=== PATIENT | female | born 1985 | race Caucasian/White ===

== ENCOUNTER 2020-08-15 09:48 | Outpatient (REF) | payer OTHER, SELFPAY ==
[2020-08-18 17:07] LABS: HPV mRNA E6/E7 rflx Not Detected (Not Detected)
== END 2020-08-15 09:49 | disposition home or self-care (01) ==
LOC: HO.LAB 09:48
PROVIDERS: PCP Internal Medicine; Visit Provider Obstetrics & Gynecology
DX: Z01.419 Encounter for gynecological examination (general) (routine) without abnormal findings (principal); Z11.51 Encounter for screening for human papillomavirus (HPV)
CPT/HCPCS: 36415; 87624; 88142

== ENCOUNTER 2020-11-23 14:36 | Outpatient (REF) | payer OTHER, SELFPAY ==
[2020-11-23 16:45] LABS: Free T4 (Free Thyroxine) 0.83 ng/dL (0.71-1.85); Thyroid Stimulating Hormone 4.62 uIU/mL (0.32-4.0)
== END 2020-11-23 14:37 | disposition home or self-care (01) ==
LOC: HO.LAB 14:36
PROVIDERS: PCP Internal Medicine; Visit Provider Internal Medicine Endocrinology, Diabetes & Metabolism
DX: E03.8 Other specified hypothyroidism (principal); E06.3 Autoimmune thyroiditis; E04.2 Nontoxic multinodular goiter
CPT/HCPCS: 36415; 84439; 84443; 99212

== ENCOUNTER 2021-01-25 09:53 | Outpatient (REF) | payer OTHER, SELFPAY ==
[2021-01-25 12:24] LABS: Free T4 (Free Thyroxine) 0.82 ng/dL (0.71-1.85); Thyroid Stimulating Hormone 3.29 uIU/mL (0.32-4.0)
== END 2021-01-25 09:54 | disposition home or self-care (01) ==
LOC: HO.LAB 09:53
PROVIDERS: PCP Internal Medicine; Visit Provider Internal Medicine Endocrinology, Diabetes & Metabolism
DX: E03.8 Other specified hypothyroidism (principal); E06.3 Autoimmune thyroiditis; E04.2 Nontoxic multinodular goiter
CPT/HCPCS: 36415; 84439; 84443; 99212

== ENCOUNTER 2021-03-06 14:15 | Outpatient (REF) | payer OTHER, SELFPAY ==
--- NOTE | ~2021-03-06 | US_ITS ---
EXAMINATION: US EXTREMITY NONVASCULAR CLINICAL INFORMATION: Palpable fullness noted by patient several weeks proximal left lower leg. No known trauma. COMPARISON: Standing AP knees 05/06/2017. TECHNIQUE: Ultrasound is targeted to the area of clinical concern anterior medial left lower extremity below the knee. Patient is able to point to area of concern at time of imaging. High frequency linear grayscale imaging and color Doppler are performed. Comparison imaging is performed of the contralateral right side. FINDINGS: Targeted ultrasound demonstrates no focal encapsulated cystic or solid mass. No hyperemia or edema tracking in soft tissue planes. The subcutaneous fat is slightly thicker on the affected side by less than 1 cm. US/US extremity nonvascular mccabe IMPRESSION: No focal cystic or solid mass demonstrated in the area of concern. If clinically indicated, further evaluation of the soft tissues could be performed with MRI without and with gadolinium contrast.
== END 2021-03-06 14:16 | disposition home or self-care (01) ==
LOC: HO.HMGCX 14:15
PROVIDERS: PCP Internal Medicine; Visit Provider Internal Medicine
DX: R22.42 Localized swelling, mass and lump, left lower limb (principal)
CPT/HCPCS: 76882

== ENCOUNTER 2021-05-19 11:59 | Outpatient (REF) | payer OTHER, SELFPAY ==
[2021-05-19 13:15] LABS: Influenza A PCR NEGATIVE (Negative); Influenza B PCR NEGATIVE (Negative); Resp Syncy Virus RNA Qual PCR NEGATIVE (Negative); SARS COV2 PCR INHOUSE NEGATIVE (Negative)
== END 2021-05-19 12:00 | disposition home or self-care (01) ==
LOC: HO.LNP 11:59
PROVIDERS: Visit Provider Internal Medicine
DX: Z20.822 Contact with and (suspected) exposure to COVID-19 (principal); J06.9 Acute upper respiratory infection, unspecified
CPT/HCPCS: 0241U

== ENCOUNTER → 2021-09-22 10:43 | Outpatient (BNVA) | payer OTHER, SELFPAY | PROVIDERS: PCP Internal Medicine; Visit Provider Internal Medicine Endocrinology, Diabetes & Metabolism | DX: E03.8 Other specified hypothyroidism (principal); E06.3 Autoimmune thyroiditis; E04.2 Nontoxic multinodular goiter | CPT/HCPCS: 99212 ==

== ENCOUNTER 2021-09-22 11:34 | Outpatient (REF) | payer OTHER, SELFPAY ==
[2021-09-22 14:24] LABS: Free T4 (Free Thyroxine) 0.85 ng/dL (0.71-1.85); Thyroid Stimulating Hormone 5.41 uIU/mL (0.32-4.0)
== END 2021-09-22 11:35 | disposition home or self-care (01) ==
LOC: HO.10HDL 11:34
PROVIDERS: Visit Provider Internal Medicine Endocrinology, Diabetes & Metabolism
DX: E04.2 Nontoxic multinodular goiter (principal); E03.8 Other specified hypothyroidism; E06.3 Autoimmune thyroiditis
CPT/HCPCS: 36415; 84439; 84443

== ENCOUNTER 2021-11-07 09:43 | Outpatient (REF) | payer OTHER, SELFPAY ==
[2021-11-07 11:25] LABS: Free T4 (Free Thyroxine) 0.87 ng/dL (0.71-1.85); Thyroid Stimulating Hormone 5.38 uIU/mL (0.32-4.0)
== END 2021-11-07 09:44 | disposition home or self-care (01) ==
LOC: HO.LAB 09:43
PROVIDERS: PCP Internal Medicine Endocrinology, Diabetes & Metabolism; Visit Provider Internal Medicine Endocrinology, Diabetes & Metabolism
DX: E03.8 Other specified hypothyroidism (principal); E06.3 Autoimmune thyroiditis
CPT/HCPCS: 36415; 84439; 84443

== ENCOUNTER 2021-11-13 10:43 | Outpatient (REF) | payer OTHER, SELFPAY ==
--- NOTE | ~2021-11-13 | US_ITS ---
EXAMINATION: US THYROID CLINICAL INFORMATION: Nontoxic multinodular goiter. COMPARISON: Ultrasound thyroid soft tissues 11/06/2017 and 05/24/2016. TECHNIQUE: Linear transducer grayscale and color Doppler examination with attention to the region of the thyroid. FINDINGS: SIZE: Measurements of the thyroid lobes and nodules are given in sagittal, anteroposterior and transverse dimensions, respectively. Right Thyroid Lobe: 5.7 x 2.0 x 2.3 cm, volume 13.7 mL. Previously 5.1 x 1.7 x 2.1 cm, volume 9.9 mL. Parenchyma: The gland echotexture is heterogeneous. Thyroid vascularity is normal. Left Thyroid Lobe: 5.7 x 2.4 x 2.4 cm, volume 17.2 mL. Previously 4.8 x 2.0 x 2.1 cm, volume 10.4 mL. Parenchyma: The gland echotexture is heterogeneous. Thyroid vascularity is normal. Isthmus: 0.6 cm in maximum AP dimension. Previously 0.5 cm. Estimated total number of nodules greater than or equal to 1 cm: 3. [employer] nodules are described as follows: 1. Location: Left upper. Size: 1.2 x 1.0 x 1.1 cm, volume 0.69 mL. Previously: Not seen previously. Nodule characteristics: Composition: Solid (2). Echogenicity: Hyperechoic (1). Shape: Not taller than wide (0). Margins: Irregular (2). Echogenic Foci: None (0). ACR TI-RADS total points: 5. ACR TI-RADS category: 4. Significant change in size (>/= 20% in 2 dimensions and minimal increase of 2 mm or 50% or greater increase in volume): Not applicable. Change in features: Not applicable. Change in ACR TI-RADS risk category: Not applicable. 2. Location: Left midpole. Size: 1.5 x 1.0 x 1.4 cm, volume 1.02 mL. Previously: 1.0 x 0.6 x 1.0 cm, volume 0.31 mL. Nodule characteristics: Composition: Mixed cystic and solid (1). Echogenicity: Cannot be determined (1). Shape: Not taller than wide (0). Margins: Smooth (0). Echogenic Foci: None (0 ACR TI-RADS total points: 2. ACR TI-RADS category: 2. Significant change in size (>/= 20% in 2 dimensions and minimal increase of 2 mm or 50% or greater increase in volume): Increased. Change in features: None. Change in ACR TI-RADS risk category: None. 3. Location: Left lower pole. Size: 2.9 x 1.8 x 2.4 cm, volume 6.33 mL. Previously: Not seen previously. Nodule characteristics: Composition: Solid/almost completely solid (2). Echogenicity: Hypoechoic (2). Shape: Not taller than wide (0). Margins: Extrathyroidal extension (3). Echogenic Foci: None (0). ACR TI-RADS total points: 7. ACR TI-RADS category: 5. Significant change in size (>/= 20% in 2 dimensions and minimal increase of 2 mm or 50% or greater increase in volume): Not applicable. Change in features: Not applicable. Change in ACR TI-RADS risk category: Not applicable. NODES: No lymphadenopathy is seen in the tissue surrounding the thyroid gland. US/US thyroid IMPRESSION: Suspicious left lower pole thyroid nodule. The upper pole has solid component. Recommend fine-needle aspiration of both these nodules. ACR TI-RADS RECOMMENDATION REFERENCE: Ultrasound-guided fine-needle aspiration, followup ultrasound, no further follow up. * TR1 (0 point) and TR 2 (2 points): No FNA or follow up * TR3 (3 points): FNA if more than or equal to 2.5 cm in maximum dimension, followup ultrasound in 1, 3 and 5 years if 1.5 to 2.4 cm in maximum dimension. * TR4 (4-6 points): FNA if more than or equal to 1.5 cm in maximum dimension, followup ultrasound in 1, 2, 3 and 5 years if 1 to 1.4 cm in maximum dimension. * TR5 (more than or equal to 7 points): FNA if more than or equal to 1 cm in maximum dimension, followup ultrasound every year for 5 years if 0.5 to 0.9 cm in maximum dimension. * TR3, TR4 or TR5 nodules that are below the size threshold for follow up receive no follow up.
== END 2021-11-13 10:44 | disposition home or self-care (01) ==
LOC: HO.HMGCX 10:43
PROVIDERS: Visit Provider Internal Medicine Endocrinology, Diabetes & Metabolism
DX: E04.2 Nontoxic multinodular goiter (principal)
CPT/HCPCS: 76536

== ENCOUNTER 2021-11-28 10:41 | Outpatient (REF) | payer OTHER, SELFPAY ==
[2021-11-28 12:58] LABS: Free T4 (Free Thyroxine) 0.94 ng/dL (0.71-1.85); Thyroid Stimulating Hormone 2.08 uIU/mL (0.32-4.0)
[2021-11-29 10:49] LABS: CT PCR NOT DETECTED (Not Detect.); NG PCR NOT DETECTED (Not Detect.)
[2021-12-01 13:49] LABS: HPV mRNA E6/E7 rflx Not Detected (Not Detected)
== END 2021-11-28 10:42 | disposition home or self-care (01) ==
LOC: HO.LAB 10:41
PROVIDERS: Internal Medicine Endocrinology, Diabetes & Metabolism; Absent Provider Advanced Practice Midwife; PCP Internal Medicine; Visit Provider Internal Medicine Endocrinology, Diabetes & Metabolism
DX: Z01.419 Encounter for gynecological examination (general) (routine) without abnormal findings (principal); Z11.51 Encounter for screening for human papillomavirus (HPV); E66.01 Morbid (severe) obesity due to excess calories; Z68.44 Body mass index [BMI] 60.0-69.9, adult; E03.8 Other specified hypothyroidism; E04.2 Nontoxic multinodular goiter; E06.3 Autoimmune thyroiditis; Z20.2 Contact with and (suspected) exposure to infections with a predominantly sexual mode of transmission
CPT/HCPCS: 36415; 84439; 84443; 87491; 87591; 87624; 88142

== ENCOUNTER 2021-11-29 09:44 | Outpatient (REF) | payer OTHER, SELFPAY ==
--- NOTE | ~2021-11-29 | US_ITS ---
PROCEDURE: ULTRASOUND-GUIDED FINE-NEEDLE ASPIRATION CLINICAL INFORMATION: Thyroid nodules. COMPARISON: Previous thyroid ultrasound November 2021 and May 2016. TECHNIQUE: Procedure and risks and benefits including bleeding and infection were discussed with the patient and informed consent was obtained. The left neck was prepped and draped in the usual sterile fashion. The skin and soft tissues were anesthetized with 1% lidocaine plain. Using ultrasound guidance and a 25-gauge needle, access to the nodule in the inferior left lobe was obtained. Three 25-gauge FNA specimens were obtained. Subsequently, the more superior left neck was anesthetized with 1% lidocaine plain. Using a 25-gauge needle, access to the hyperechoic nodule in the superior left lobe was obtained. Three 25-gauge FNA specimens were obtained. FINDINGS: There is a 0.7 x 0.7 x 0.9 cm hyperechoic nodule in the superior left lobe that was targeted for fine-needle aspiration. There is a 1.7 x 1.5 x 1.7 cm heterogeneous predominately solid nodule in the inferior left lobe that was targeted for fine-needle aspiration. US/US guided fine needle asp IMPRESSION: Ultrasound-guided left thyroid nodule fine-needle aspirations.
--- NOTE | ~2021-11-29 | US_ITS ---
PROCEDURE: ULTRASOUND-GUIDED FINE-NEEDLE ASPIRATION CLINICAL INFORMATION: Thyroid nodules. COMPARISON: Previous thyroid ultrasound November 2021 and May 2016. TECHNIQUE: Procedure and risks and benefits including bleeding and infection were discussed with the patient and informed consent was obtained. The left neck was prepped and draped in the usual sterile fashion. The skin and soft tissues were anesthetized with 1% lidocaine plain. Using ultrasound guidance and a 25-gauge needle, access to the nodule in the inferior left lobe was obtained. Three 25-gauge FNA specimens were obtained. Subsequently, the more superior left neck was anesthetized with 1% lidocaine plain. Using a 25-gauge needle, access to the hyperechoic nodule in the superior left lobe was obtained. Three 25-gauge FNA specimens were obtained. FINDINGS: There is a 0.7 x 0.7 x 0.9 cm hyperechoic nodule in the superior left lobe that was targeted for fine-needle aspiration. There is a 1.7 x 1.5 x 1.7 cm heterogeneous predominately solid nodule in the inferior left lobe that was targeted for fine-needle aspiration. US/US guided fine needle asp add IMPRESSION: Ultrasound-guided left thyroid nodule fine-needle aspirations.
[2021-11-29] MEDS: Lidocaine HCl 1 % MPF 5 ML VIAL 4 ML SUBCUT (11:34)
== END 2021-11-29 09:45 | disposition home or self-care (01) ==
LOC: HO.US 09:44
PROVIDERS: Visit Provider Internal Medicine Endocrinology, Diabetes & Metabolism
DX: E04.2 Nontoxic multinodular goiter (principal)
CPT/HCPCS: 10005; 10006; 88172; 88173; 88177; 88305

== ENCOUNTER → 2021-12-14 13:19 | Outpatient (BNVA) | payer OTHER, SELFPAY | PROVIDERS: PCP Internal Medicine; Visit Provider Internal Medicine Endocrinology, Diabetes & Metabolism | DX: E03.8 Other specified hypothyroidism (principal); E06.3 Autoimmune thyroiditis; E04.2 Nontoxic multinodular goiter | CPT/HCPCS: 99212 ==

== ENCOUNTER 2021-12-25 09:27 | Outpatient (REF) | payer OTHER, SELFPAY ==
[2021-12-25 11:11] LABS: Free T4 (Free Thyroxine) 1.06 ng/dL (0.71-1.85); Thyroid Stimulating Hormone 1.45 uIU/mL (0.32-4.0)
== END 2021-12-25 09:28 | disposition home or self-care (01) ==
LOC: HO.LAB 09:27
PROVIDERS: PCP Internal Medicine; Visit Provider Internal Medicine Endocrinology, Diabetes & Metabolism
DX: E03.8 Other specified hypothyroidism (principal); E06.3 Autoimmune thyroiditis
CPT/HCPCS: 36415; 84439; 84443

== ENCOUNTER 2022-10-22 13:23 | Outpatient (REF) | payer OTHER, SELFPAY ==
--- NOTE | ~2022-10-22 | MM_ITS ---
EXAMINATION: MM DIAGNOSTIC DIGITAL BREAST TOMOSYNTHESIS, BILATERAL US DIAGNOSTIC ULTRASOUND BREAST, RIGHT CLINICAL INFORMATION: Nontender palpable lump subareolar right breast for approximately 2 weeks. No discharge. No erythema. No prior breast imaging. No known family history breast cancer. The lifetime risk of breast cancer based on the Tyrer-Cuzick Model is 12%. COMPARISON: None (current study represents initial baseline exam). TECHNIQUE: Digital breast tomosynthesis is performed in both the craniocaudal and mediolateral oblique views along with computer-aided detection (CAD). Synthesized 2D images are generated from the tomosynthesis. Additional views are obtained: Right MLO, spot right CC. Ultrasound right breast is targeted to the area of palpable concern retroareolar lower outer breast. Grayscale imaging and color Doppler are performed without and with harmonics. FINDINGS: There are scattered areas of fibroglandular density (ACR BI-RADS breast composition Category b). There is no architectural abnormality or significant mass appreciated. No abnormal calcifications. The axilla are unremarkable. No skin thickening or coarsening of the Brian's ligaments. Ultrasound right breast demonstrates a hypoechoic lesion corresponding to the palpable concern 8:00 retroareolar position with long axis parallel with the skin. Overall dimensions are approximately 1.5 x 0.6 x 1.0 cm. Finding is difficult to separate from the deep dermis and may involve the skin. There is increased vascularity on color Doppler around this area with associated internal color flow is well. Results are discussed with the patient at time of visit. The finding on ultrasound corresponds to the palpable concern. The finding is nonspecific but could represent a benign lesion such as an inflamed sebaceous cyst (which on needle sampling could cause surrounding post sampling inflammation). Patient notes no tenderness at this time. A surgical consult is therefore recommended for further evaluation and to assist with management (follow-up, surgical excision, or ultrasound guided needle sampling). Preliminary results called to medical billing representative for Dr. Grant on 10/22/2022. Results also called to office (HARSH Zacarias) for Dr. Blackwood on 10/22/2022. MM/MM tomosynthesis diagnostic BI IMPRESSION: Right: -Nonspecific subareolar nodule 8:00 right breast with associated color flow. Left: -No mammographic evidence of malignancy. ASSESSMENT: BI-RADS 4: Suspicious (subcategory 4A: Low suspicion for malignancy) RECOMMENDATION: Surgical consult. This patient's information was entered into a reminder system with a target due date for their next mammogram.
== END 2022-10-22 13:24 | disposition home or self-care (01) ==
LOC: HO.MAMMO 13:23
PROVIDERS: Visit Provider Physician Assistant
DX: N63.13 Unspecified lump in the right breast, lower outer quadrant (principal)
CPT/HCPCS: 76642; 77062; 77066

== ENCOUNTER → 2022-11-01 13:59 | Outpatient (BNVA) | payer OTHER, SELFPAY | PROVIDERS: PCP Internal Medicine; Visit Provider Surgery | DX: N63.10 Unspecified lump in the right breast, unspecified quadrant (principal) | CPT/HCPCS: 99202 ==

== ENCOUNTER 2022-11-26 06:07 | Day surgery (SDC) | payer OTHER, SELFPAY ==
[2022-11-22 14:41] VITALS: BMI 60.0
[2022-11-26] VITALS (7 sets, daily range): BP systolic 119–150; BP diastolic 56–86; PULSE 91–116; RESP 20; TEMP 36.2–36.6; O2SAT 97–100
[2022-11-26 06:24] LABS: UPreg QC Valid YES; Urine Pregnancy NEGATIVE (NEGATIVE)
[2022-11-26] MEDS: Lactated Ringers 1,000 ML 100 ML IVCONT (06:45)
--- NOTE | 2022-11-26 07:07 | HO.ANESPROP2 ---
HPI - Anesthesia Eval Consult details Narrative: 37 yo F presenting for right breast mass excision PMFSH Active Problems Active Problems: All Active Problems (Updated 11/22/22 @ 14:44 by Francisca Sanchez RN) Encounter for annual routine gynecological examination (Acute) BMI 60.0-69.9, adult (Acute) Morbid obesity (Acute) Depression (Acute) Localized swelling, mass and lump, left lower limb (Acute) Non-toxic multinodular goiter (Acute) Hypothyroidism (Acute) Past Medical History Medical History Anxiety BMI 60.0-69.9, adult Depression History of abnormal cervical Pap smear Hypothyroidism Localized swelling, mass and lump, left lower limb Morbid obesity Non-toxic multinodular goiter Patient : No Narrative: HCG neg on 11/26/22 Family History Family History Father Stroke Depression Diabetes mellitus Mental health disorder Mother Mental health disorder Maternal Grandmother Unknown family medical history Maternal Grandfather No problems noted. Paternal Grandmother Unknown family medical history Paternal Grandfather Unknown family medical history Brother Mental health disorder Sister No problems noted. Sister No problems noted. Sister No problems noted. Family history of problems with anesthesia: No Surgical History Surgical History No pertinent past surgical history Social History Social History Household Members Other:: sister Housing: House Are you a primary progressive care unit registered nurse to a significant other at home: No Do you presently have visiting nurse or other home services: No Alcohol intake: never Patient Tobacco Use Status: Never used Tobacco e-Cigarette/Vaping Use: Never Used Second Hand Smoke Exposure: No Have you been hit, kicked, punched, or otherwise hurt by someone within the past year? If so, by whom?: No Are you DNR?: No Advance Directives: No Advance Directives Information Provided: Yes Advance Directives on File: No Recently lost weight without trying: No Nutrition Risks: No Nutritional Risk Patient : No FDLMP: 11/22/2022 : No Poor oral hygiene: No service: No Current occupational status: disabled Current occupational exposures/hazards: No Sexual orientation: Straight/Heterosexual Gender identity: Female Meds Allergies Allergy/AdvReac Type Severity Reaction Status Date / Time No Known Allergies Allergy Verified 11/01/22 14:51 [No Known Allergies*] seasonal allergies- pollen Allergy Unknown itchiness Uncoded 11/01/22 14:51 Active Medications: Current Medications Lactated Ringer's (Lr) 1,000 mls @ 100 mls/hr IVCONT .Q10H ALYSE Last Admin: 11/26/22 06:45 Dose: 100 mls/hr Home Medications Medication Instructions Recorded Confirmed Last Taken Type fluoxetine 40 mg capsule 40 mg PO DAILY 01/25/21 11/22/22 11/26/22 History hydroxyzine pamoate 25 mg capsule 25 mg PO TID PRN Anxiety 01/25/21 11/22/22 Unknown History Exam Exam Date and Time: November 26, 2022 0707 Height,Weight and Vital Signs: Height 5 ft 2 in Weight 148.778 kg Last Vital Signs Temp 97.2 F 11/26/22 06:34 Pulse 91 11/26/22 06:34 Resp 20 11/26/22 06:34 BP 150/86 H 11/26/22 06:34 Pulse Ox 100 11/26/22 06:34 O2 Del Method Room Air 11/26/22 06:34 Pertinent Lab Results Pertinent Lab Results: Laboratory Tests 11/26/22 06:13 Urine Test NEGATIVE Airway Mallampati Class: III TM Dist: >3cm Neck ROM: Full Loose/Missing/Broken Teeth: No (Patient denies any loose or chipped teeth) Heart: S1S2 Lungs: CTAB Assessment and Plan Assessment Anesthesia Assessment: Anesthesia Plan Discussed and Chart Reviewed Final Anesthetic Review Family History of Problems with Anesthesia: No NPO: Yes ASA Class: III Final Preanesthetic Review: No Changes in Pt Med Stat, Meds/Allgs Chart Reviewed, Consent Obtained/Reviewed and Anes Risks/Benef Reviewed Patient Risk: Intermediate Procedure Risk: Low Anesthetic Plan Anesthetic Plan: GA and Agree w/ Assess. and Plan Disposition: Standard PACU
--- NOTE | 2022-11-26 07:33 | MHC.SHP ---
Pre-Procedural Eval Section A Date of Service: 11/26/22 The patient is an INPATIENT: No Changes since office visit: Yes Patient answered all questions; No Cold of Flu in the past 2 weeks, No New Medical Problems and No Changes in Medication The History & Physical has been completed within 30 days and I have reviewed it.: Yes Section B Chief Complaint: Unspecified lump in the right breast, unspecified Allergies: Allergies Allergy/AdvReac Type Severity Reaction Status Date / Time No Known Allergies Allergy Verified 11/01/22 14:51 [No Known Allergies*] seasonal allergies- pollen Allergy Unknown itchiness Uncoded 11/01/22 14:51 Plan Diagnosis/Plan: Unchanged I have reviewed the history and physical and performed a pertinent physical examination on my patient. No changes have occurred unless specified. Time Spent With Patient Time: Total time managing care of this patient today ____ minutes.
--- NOTE | 2022-11-26 07:36 | W.PM.OPN ---
Operative Note Operative Note Date of Service: 11/26/22 Narrative: Preoperative diagnosis: Right breast mass Postoperative diagnosis: same Procedure: Right breast lumpectomy Surgeon: Dwayne Grant MD Pushcart Peddler: Shanta Munguia PA-C Anesthesia: General LMA Indications for procedure: 37 year old female presenting with complaints of a palpable mass in the right breast in the 8 o'clock location, below the nipple, confirmed by breast ultrasound. On examination, the lesion is smooth and mobile, located beneath the areola at the 8 o'clock location, mildly tender to palpation. No overlying skin changes are noted. Operative findings: cystic collection with white thick fluid located below the nipple-areolar complex at the 8 o'clock position consistent with a obstructed lactiferous duct. Specimen: right breast mass Estimated blood loss: 2 mL Complications: none Procedure details: patient was brought to the OR placed in a supine position. After administering general anesthesia the patient's right breast was prepped with ChloraPrep and draped in a sterile fashion. A surgical time-out was called and the consent confirmed. Patient received preoperative antibiotics and Venodyne boots were in place. Local anesthesia was infiltrated in a periareolar location along the 8 to 9 o'clock position. Incision was then made with a 15 blade and carried out through subcutaneous tissue. Superior inferior skin flaps were then created. Dissection was continued down beyond the nipple within the subcutaneous tissue. The palpable mass was then grasped with an Allis clamp. This was then incised using electrocautery. A collection of purulent fluid was evacuated during this procedure. The lesion was completely excised and sent to pathology for further examination. Hemostasis assured using free ties of 3-0 Polysorb. Deep breast tissue was then reapproximated using interrupted 3-0 Polysorb sutures. Superficial breast tissue and dermis were reapproximated using interrupted 3-0 Polysorb sutures. Skin was then closed using a running subcuticular 4-0 Polysorb suture. Steri-Strips, 2 x 2 gauze and Tegaderm were then applied. The patient tolerated the procedure well. Sponge, instrument, and needle counts were reported as correct. Patient was transferred to PACU in stable condition.
== END 2022-11-26 10:00 | disposition home or self-care (01) ==
PROVIDERS: Anesthesiology; PCP Internal Medicine; Visit Provider Surgery
PROC: (CPT 19120; principal; 2022-11-26 07:30)
DX: D24.1 Benign neoplasm of right breast (principal); Q85.89 Other phakomatoses, not elsewhere classified; L82.1 Other seborrheic keratosis; J30.2 Other seasonal allergic rhinitis; E03.9 Hypothyroidism, unspecified; E04.2 Nontoxic multinodular goiter; F32.A Depression, unspecified; E66.01 Morbid (severe) obesity due to excess calories; Z68.44 Body mass index [BMI] 60.0-69.9, adult; Z79.51 Long term (current) use of inhaled steroids; Z79.899 Other long term (current) drug therapy
CPT/HCPCS: 19301; 81025; 88305; 88307; J0330; J0690; J1100; J2250; J2370; J2405; J2795; J3010

== ENCOUNTER 2022-12-03 10:55 | Outpatient (REF) | payer OTHER, SELFPAY | END 2022-12-03 10:56 | disposition home or self-care (01) | LOC: HO.LNP 10:55 | PROVIDERS: PCP Internal Medicine; Visit Provider Advanced Practice Midwife | DX: Z13.89 Encounter for screening for other disorder (principal) ==

== ENCOUNTER 2022-12-03 11:43 | Outpatient (REF) | payer OTHER, SELFPAY ==
[2022-12-04 06:34] LABS: CT PCR NOT DETECTED (Not Detect.); NG PCR NOT DETECTED (Not Detect.)
[2022-12-05 04:31] LABS: Syphilis Screen Nonreactive (Nonreactive)
[2022-12-05 07:33] LABS: HBc Num1 0.11 S/CO (0.00-0.79); HIV AB/AG Nonreactive (Nonreactive); HIV Num 1 0.16 S/CO (0.00-0.99); Hepatitis B Core Antibody Nonreactive (Nonreactive); ~HepC Num1 0.13 S/CO (0.00-0.79); ~Hepatitis C Antibody Nonreactive (Nonreactive)
== END 2022-12-03 11:44 | disposition home or self-care (01) ==
LOC: HO.LAB 11:43
PROVIDERS: Visit Provider Advanced Practice Midwife
DX: Z11.4 Encounter for screening for human immunodeficiency virus [HIV] (principal); Z20.2 Contact with and (suspected) exposure to infections with a predominantly sexual mode of transmission
CPT/HCPCS: 0353U; 86704; 86780; 86803; 87389

== ENCOUNTER → 2022-12-05 13:46 | Outpatient (BNVA) | payer OTHER, SELFPAY | PROVIDERS: PCP Internal Medicine; Visit Provider Surgery | DX: N64.89 Other specified disorders of breast (principal); D24.1 Benign neoplasm of right breast | CPT/HCPCS: 99212 ==

== ENCOUNTER 2022-12-12 10:08 | Outpatient (REF) | payer OTHER, SELFPAY ==
[2022-12-12 13:47] LABS: Free T4 (Free Thyroxine) 0.68 ng/dL (0.71-1.85); Thyroid Stimulating Hormone 6.53 uIU/mL (0.32-4.0)
== END 2022-12-12 10:09 | disposition home or self-care (01) ==
LOC: HO.LAB 10:08
PROVIDERS: PCP Internal Medicine; Visit Provider Internal Medicine Endocrinology, Diabetes & Metabolism
DX: E03.8 Other specified hypothyroidism (principal); E04.2 Nontoxic multinodular goiter; E06.3 Autoimmune thyroiditis; Z79.899 Other long term (current) drug therapy
CPT/HCPCS: 36415; 84439; 84443; 99212

== ENCOUNTER 2023-01-02 10:59 | Outpatient (REF) | payer OTHER, SELFPAY ==
--- NOTE | ~2023-01-02 | US_ITS ---
EXAMINATION: US THYROID CLINICAL INFORMATION: Hypothyroidism, unspecified. COMPARISON: Ultrasound thyroid 11/13/2021 and 11/06/2017. US-guided thyroid biopsy 11/29/2021. TECHNIQUE: Linear transducer grayscale and color Doppler examination with attention to the region of the thyroid. Technically limited study secondary to body habitus. FINDINGS: SIZE: Measurements of the thyroid lobes and nodules are given in sagittal, anteroposterior and transverse dimensions respectively. Right Thyroid Lobe: 5.4 x 2.2 x 2.4 cm, volume 14.6 mL. Previously 5.7 x 2.0 x 2.3 cm, volume 13.7 mL. Parenchyma: The gland echotexture is heterogeneous. Thyroid vascularity is normal. Left Thyroid Lobe: 5.3 x 2.4 x 2.0 cm, volume 13.2 mL. Previously 5.7 x 2.4 x 2.4 cm, volume 17.2 mL. Parenchyma: The gland echotexture is heterogeneous. Thyroid vascularity is normal. Isthmus: 0.5 cm in maximum AP dimension. Previously 0.6 cm. Estimated total number of nodules greater than or equal to 1 cm: 3. Director [employer] nodules are described as follows: 1. Location: Left superior. Size: 0.9 x 0.9 x 0.9 cm, volume 0.4 mL. Previously: 1.2 x 1.0 x 1.1 cm, volume 0.69 mL. Nodule characteristics: Composition: Solid (2). Echogenicity: Hyperechoic (1). Shape: Not taller than wide (0). Margins: Smooth (0). Echogenic Foci: None (0). ACR TI-RADS total points: 3 Previous: 5 ACR TI-RADS category: 3 Previous: 4 Significant change in size (>/= 20% in 2 dimensions and minimal increase of 2 mm or 50% or greater increase in volume): No Change in features: No Change in ACR TI-RADS risk category: No 2. Location: Left mid. Size: 1.5 x 0.8 x 1.1 cm, volume 0.7 mL. Previously: 1.5 x 1.0 x 1.4 cm, volume 1.0 mL. Nodule characteristics: Composition: Mixed cystic and solid (1). Echogenicity: Cannot be determined (1). Shape: Not taller than wide (0). Margins: Smooth (0). Echogenic Foci: None (0). ACR TI-RADS total points: 2 Previous: 2 ACR TI-RADS category: 2 Previous: 2 Significant change in size (>/= 20% in 2 dimensions and minimal increase of 2 mm or 50% or greater increase in volume): No Change in features: No Change in ACR TI-RADS risk category: No 3. Location: Left inferior. Size: 1.9 x 1.6 x 2.0 cm, volume 3.1 mL. Previously: 2.9 x 1.8 x 2.4 cm, volume 6.3 mL. Nodule characteristics: Composition: Solid/almost completely solid (2). Echogenicity: Isoechoic (1). Shape: Not taller than wide (0). Margins: Ill-defined (0). Echogenic Foci: None (0). ACR TI-RADS total points: 3 Previous: 7 ACR TI-RADS category: 3 Previous: 5 Significant change in size (>/= 20% in 2 dimensions and minimal increase of 2 mm or 50% or greater increase in volume): No Change in features: Yes, improved Change in ACR TI-RADS risk category: Yes, improved NODES: No lymphadenopathy is seen in the tissue surrounding the thyroid gland. US/US thyroid IMPRESSION: Multinodular goiter. ACR TI-RADS RECOMMENDATION REFERENCE: Ultrasound-guided fine-needle aspiration, followup ultrasound, no further follow up. * TR1 (0 point) and TR2 (2 points): No FNA or follow up. * TR3 (3 points): FNA if more than or equal to 2.5 cm in maximum dimension, followup ultrasound in 1, 3 and 5 years if 1.5 to 2.4 cm in maximum dimension. * TR4 (4-6 points): FNA if more than or equal to 1.5 cm in maximum dimension, followup ultrasound in 1, 2, 3 and 5 years if 1 to 1.4 cm in maximum dimension. * TR5 (more than or equal to 7 points): FNA if more than or equal to 1 cm in maximum dimension, followup ultrasound every year for 5 years if 0.5 to 0.9 cm in maximum dimension. * TR3, TR4 or TR5 nodules that are below the size threshold for followup receive no follow up.
== END 2023-01-02 11:00 | disposition home or self-care (01) ==
LOC: HO.US 10:59
PROVIDERS: PCP Internal Medicine; Visit Provider Internal Medicine Endocrinology, Diabetes & Metabolism
DX: E04.2 Nontoxic multinodular goiter (principal); E03.9 Hypothyroidism, unspecified
CPT/HCPCS: 76536

== ENCOUNTER 2023-02-26 10:04 | Outpatient (AMB) | payer OTHER, SELFPAY ==
--- NOTE | 2023-02-26 10:10 | A.OFFVIS_ITS ---
Intake Vital Signs 02/26/23 10:17 Height 5 ft 2 in Weight 331 lb 2 oz BMI 60.6 BP 146/74 H Blood Pressure Location Lt brachial Position Sitting Pulse 94 Intake Visit Reasons: Lump Rt breast Intake Note: Patient is seen in office for 3 month follow up visit, post right breast lumpectomy.. Patient c/o: feels a lump in the incision therapy site coordinator Required: No Financial Intern: Financial Intern Present Accompanied by: Self / Same As Patient Allergies pollen extracts Allergy (Verified 02/26/23 10:12) Itching Seasonal Allergies Allergy (Verified 02/26/23 10:12) Itching HPI HPI Comments History of Present Illness Details 38-year-old female patient presenting for evaluation of a palpable breast mass located in the nipple-areolar complex noted on self examination. She previously underwent a right breast lumpectomy on 11/26/2022 with an incision located in the periareolar location from 8-9 o'clock position. This revealed a mammary hematoma and small intraductal papilloma, completely excised. She is concerned that a new palpable lump as developed. This was 1st identified approximately 2 weeks ago has not changed significantly since then. [facility] Medical History Anxiety BMI 60.0-69.9, adult Depression History of abnormal cervical Pap smear Hypothyroidism Localized swelling, mass and lump, left lower limb Morbid obesity Non-toxic multinodular goiter Surgical History History of lumpectomy of right breast (11/26/22) Family History Father Stroke Depression Diabetes mellitus Mental health disorder Mother Mental health disorder Maternal Grandmother Unknown family medical history Maternal Grandfather No problems noted. Paternal Grandmother Unknown family medical history Paternal Grandfather Unknown family medical history Brother Mental health disorder Sister No problems noted. Sister No problems noted. Sister No problems noted. Social History Household Members Other:: sister Housing: House Are you a primary residential caregiver to a significant other at home: No Do you presently have visiting nurse or other home services: No Alcohol intake: never Patient Tobacco Use Status: Never used Tobacco e-Cigarette/Vaping Use: Never Used Second Hand Smoke Exposure: No service: No Current occupational status: disabled Current occupational exposures/hazards: No Sexual orientation: Straight/Heterosexual Gender identity: Female Female Reproductive History Menstrual Age of Menarche: 10 Review of Systems Const All systems reviewed & are unremarkable except as noted in HPI and below Denies chills, Denies fever(s), Denies headache(s), Denies poor appetite and Denies weakness ENT Denies headache(s) Card Denies chest pain, Denies irregular heart rhythm, Denies palpitations and Denies dyspnea Resp Denies cough, Denies excessive phlegm production and Denies dyspnea GI Denies abdominal pain, Denies bloating, Denies change in bowel habits, Denies constipation, Denies heartburn, Denies diarrhea, Denies nausea and Denies vomiting Denies urinary frequency and Denies nipple discharge Musc Denies back pain, Denies muscle weakness and Denies numbness Skin/Breast Denies breast swelling, Denies breast skin changes, Reports breast pain, Reports breast mass, Denies changing lesions, Denies nipple discharge and Denies unusual bruising Neuro Denies headache(s), Denies numbness, Denies paresthesias and Denies weakness Psych Denies anxiety and Denies depression Endo Denies palpitations Asaf/Lymph Denies lymphadenopathy Physical Exam Vital Signs: Last Vital Signs Pulse 94 02/26/23 10:17 BP 146/74 H 02/26/23 10:17 BMI result Body Mass Index 60.6 Const General: no acute distress and well developed Nutritional Appearance: well nourished Orientation/consciousness: patient oriented x3 Limitations: no limitations Chest Other: Circumareolar incision in the lower outer quadrant of the right breast is clean, dry, and intact without redness or discharge. The palpable masses located adjacent to this just below the nipple as noted below. This appears to be scar tissue from her previous surgery or a small fluid collection. No new suspicious masses identified. Chest/axillae images: 1. Previous incision 2. Site of palpable lump consistent with scar tissue. Resp Effort & Inspection: normal respiratory effort, no audible wheezes, no cough and no respiratory distress GI Inspection: Yes normal to inspection Skin Other: Warm, dry, no rash Neuro General: patient oriented x3 Extrem Other: No edema Assessment & Plan Assessment & Plan (1) Mass of right breast: Code(s): N63.10 - Unspecified lump in the right breast, unspecified quadrant Plan 38-year-old female patient presenting with a palpable mass in the right breast. On examination this is directly adjacent to the previous surgery and appears to be scar tissue related to this previous procedure in November 2022. I recommended observation with follow-up in approximately 3 months. She is welcome to call sooner for any new concerns. Coding Level of Care Code Est Pt Level 3 (39936) Diagnoses Mass of right breast N63.10
[2023-02-26 10:17] VITALS: BP 146/74; PULSE 94; BMI 60.6
== END 2023-02-26 10:27 | disposition home or self-care (01) ==
PROVIDERS: PCP Internal Medicine; Visit Provider Surgery
DX: N63.15 Unspecified lump in the right breast, overlapping quadrants (principal)
CPT/HCPCS: 99213

== ENCOUNTER → 2023-02-26 10:04 | Outpatient (BNVA) | payer OTHER, SELFPAY | PROVIDERS: PCP Internal Medicine; Visit Provider Surgery | DX: N63.10 Unspecified lump in the right breast, unspecified quadrant (principal) | CPT/HCPCS: 99212 ==

== ENCOUNTER 2023-04-24 09:21 | Outpatient (AMB) | payer OTHER, SELFPAY ==
[2023-04-24 09:30] VITALS: BP 130/78; PULSE 84; O2SAT 98; BMI 60.0
--- NOTE | 2023-04-24 09:30 | A.OFFPC_ITS ---
<Statement entered by Angella Blackwood MD - 08/15/25 23:54> This note has been administratively?closed. Vital Signs 04/24/23 09:30 Height 5 ft 2 in Weight 328 lb BMI 60.0 BP 130/78 Blood Pressure Location Rt brachial Position Sitting Pulse 84 Pulse Source Pulse Oximeter Pulse Oximetry (%) 98 Oxygen Delivery Method Room Air Intake Visit Reasons: Right knee pain Intake Note: patient is here today for right knee pain Allergies pollen extracts Allergy (Verified 07/14/25 10:53) Itching Seasonal Allergies Allergy (Verified 07/14/25 10:53) Itching Tobacco use date assessed: 04/24/23 Dental Screening Dental Screen Date: 04/24/23 Did you have a dental visit in the last 12 months?: No Did you have a dental problem in the last 6 months where you did not have access to dental care?: Yes Was dental information given to patient?: Patient has dentist [facility] Medical History (Updated 07/01/25 @ 13:53 by Joselyn Stewart CNM) Anxiety BMI 60.0-69.9, adult Morbid obesity History of abnormal cervical Pap smear Depression Localized swelling, mass and lump, left lower limb Non-toxic multinodular goiter Hypothyroidism Surgical History History of lumpectomy of right breast (11/26/22) Family History Father Stroke Depression Diabetes mellitus Mental health disorder Mother Mental health disorder Maternal Grandmother Unknown family medical history Maternal Grandfather No problems noted. Paternal Grandmother Unknown family medical history Paternal Grandfather Unknown family medical history Brother Mental health disorder Sister No problems noted. Sister No problems noted. Sister No problems noted. Social History Household Members Other:: sister Housing: House Are you a primary career placement specialist to a significant other at home: No Do you presently have visiting nurse or other home services: No Alcohol intake: never Patient Tobacco Use Status: Never used Tobacco e-Cigarette/Vaping Use: Never Used Second Hand Smoke Exposure: No service: No Current occupational status: disabled Current occupational exposures/hazards: No Sexual orientation: Straight/Heterosexual Gender identity: Female Female Reproductive History Menstrual Age of Menarche: 10 Questionnaire PHQ-9 Over the last 2 weeks, how often have you been bothered by any of the following problems? 1. Little interest or pleasure in doing things: more than half the days 2. Feeling down, depressed, or hopeless: several days 3. Trouble falling or staying asleep, or sleeping too much: several days 4. Feeling tired or having little energy: more than half the days 5. Poor appetite or overeating: nearly every day 6. Feeling bad about yourself - or that you are a failure or have let yourself or your family down: more than half the days 7. Trouble concentrating on things, such as reading the newspaper or watching television: more than half the days 8. Moving or speaking so slowly that other people could have noticed. Or the opposite - being so fidgety or restless that you have been moving around a lot more than usual: more than half the days 9. Thoughts that you would be better off or of hurting yourself in some way: not at all Total score: 15 Source: Developed by Drs. Renny Hutchinson, Kelsey Wgigins, Piotr Byers and colleagues, with an educational melissa from [employer]. Thrive Questionnaire Date Thrive assessed: 04/24/23 I am a: Patient What is your living situation today?: I have a steady place to live Within the past 12 months, did the food you bought not last and you didn't have the money to get more?: Never true Within the past 12 months, did you worry whether your food would run out before you got money to buy more?: Never true Do you have trouble paying for medicines?: No Do you have trouble getting transportation to medical appointments?: Yes Do you have trouble paying your heating and electricity bill?: No Do you have trouble taking care of your child, family member or friend?: No Do you have trouble with day-to-day activities such as bathing, preparing meals, shopping, managing finances, etc.?: Yes Are you currently unemployed and looking for a job?: No Are you interested in more education?: Yes AUDIT C Alcohol Use Questionnaire (AUDIT-C) 1. How often do you have a drink containing alcohol?: Never Total Score: 0 PARUL-7 AMB Questionnaire PARUL-7 Date PARUL - 7 assessed: 04/24/23 Feeling nervous, anxious, or on edge: 3 = Nearly every day Not being able to stop or control worryin = More than half the days Worrying too much about different things: 3 = Nearly every day Trouble relaxin = More than half the days Being so restless that it is hard to sit still: 2 = More than half the days Becoming easily annoyed or irritable: 2 = More than half the days Feeling afraid as if something awful might happen: 3 = Nearly every day Total PARUL-7 score (0-4 normal; 5-9 mild; 10-14 moderate; 15-21 severe): 17 Source: Developed by Drs. Renny Hutchinson, Kelsey Wiggins, Piotr Byers and colleagues, with an educational melissa from [employer]. Physical exam (Primary Care) Vital Signs: Last Vital Signs Pulse 84 04/24/23 09:30 BP 130/78 04/24/23 09:30 Pulse Ox 98 04/24/23 09:30 Oxygen Delivery Method Room Air 04/24/23 09:30 BMI result Body Mass Index 60.0 Tobacco/Smoking Status: Tobacco use Status Tobacco use date assessed 04/24/23 04/24/23 09:32 Patient Tobacco Use Status Never used Tobacco 04/24/23 09:32 e-Cigarette/Vaping Use Never Used 04/24/23 09:32 PHQ-9: PHQ-9 Score PHQ-9: Total score 15 04/24/23 11:15 Thrive Assessment: Date of Thrive Assessment Date Thrive assessed 04/24/23 04/24/23 10:42 Coding Level of Care Code Admin Sign Off/No Billing Diagnoses Right anterior knee pain M25.561
== END 2023-04-24 12:28 | disposition home or self-care (01) ==
PROVIDERS: PCP Internal Medicine; Visit Provider Internal Medicine
DX: M25.561 Pain in right knee (principal)
CPT/HCPCS: 99499

== ENCOUNTER 2023-04-24 11:19 | Outpatient (REF) | payer OTHER, SELFPAY | END 2023-04-24 11:20 | disposition home or self-care (01) | LOC: HO.HMGCX 11:19 | PROVIDERS: PCP Internal Medicine; Visit Provider Internal Medicine | DX: M25.561 Pain in right knee (principal) | CPT/HCPCS: 73564 ==

== ENCOUNTER 2023-05-22 09:18 | Outpatient (REF) | payer OTHER, SELFPAY ==
[2023-05-22 11:08] LABS: Free T4 (Free Thyroxine) 0.87 ng/dL (0.71-1.85); Thyroid Stimulating Hormone 3.97 uIU/mL (0.32-4.0)
== END 2023-05-22 09:19 | disposition home or self-care (01) ==
LOC: HO.LAB 09:18
PROVIDERS: PCP Internal Medicine; Visit Provider Internal Medicine Endocrinology, Diabetes & Metabolism
DX: E03.8 Other specified hypothyroidism (principal); E06.3 Autoimmune thyroiditis
CPT/HCPCS: 36415; 84439; 84443

== ENCOUNTER 2023-05-28 09:28 | Outpatient (AMB) | payer OTHER, SELFPAY ==
--- NOTE | 2023-05-28 09:31 | MHC.OFFVIS ---
Intake Vital Signs 05/28/23 09:32 Height 5 ft 2 in Weight 319 lb 10.724 oz BMI 58.5 BP 132/84 Blood Pressure Location Lt brachial Position Sitting Pulse 75 Pulse Source Pulse Oximeter Intake Visit Reasons: f/u hypothyroidism,MNG-LVM Intake Note: Patient present for Hypothyroidism and MNG. Program Management Analyst Required: No Accompanied by: Self / Same As Patient Allergies pollen extracts Allergy (Verified 05/28/23 09:39) Itching Seasonal Allergies Allergy (Verified 05/28/23 09:39) Itching Medication List - Last Reconciled 05/28/23 by Renny Torres MD diclofenac sodium 1% 4 grams topical QID PRN fluoxetine 40 mg PO DAILY fluticasone propionate 50 mcg/actuation (Allergy Relief (fluticasone)) 1 spray intranasal DAILY hydroxyzine pamoate 25 mg PO TID PRN levothyroxine 137 mcg PO DAILY oxycodone 5 mg PO Q6H PRN HPI HPI Comments History of Present Illness Details 38 yo female today for fup visit,1 for hypothyroidism She is feeling well. Her weight is stable. She has Autoimmune thyroid disease she has all antibodies positive and a NTMNG. She has depression, morbid obesity. She is currently on levothyroxine 137 mcg daily. Denies cold or heat intolerance, regular periods, denies diarrhea, constipation, insomnia, fatigue, dry skin, dysphagia, dyspnea, dysphonia, tremors, palpitations, irritability, anxiety. TSH 6.80 MIU/ML 01/12/16 TSH 6.97 MIU/ML 09/19/15 TSH 4.51 MIU/ML 07/06/15 US thyroid 11/06/17 Right thyroid lobe: 5.1 x 1.7 x 2.1 cm, volume 9.9 mL. Left thyroid lobe: 4.8 x 2.0 x 2.1 cm, volume 10.4 mL. Isthmus: 0.5 cm in maximum AP dimension. PARENCHYMA: The gland echotexture is heterogeneous. Thyroid vascularity is normal. RIGHT THYROID LOBE: No nodules. ISTHMUS: No nodules. LEFT THYROID LOBE: There is 1 nodule seen. 1. Location: Interpolar region, anteriorly. Size: 1.0 x 0.6 x 1.0 cm. Previous: 1.3 x 0.5 x 0.8 cm. Nodule characteristics: Well-circumscribed, mixed cystic-solid, with Doppler flow in the solid component. No microcalcifications. NODES: The lymph nodes observed inferior to the left thyroid lobe are not detected on today's exam. No lymphadenopathy within the examined lower neck. She is status post FNA with results as follows: Left lower pole FNA was benign and left upper pole showed FLUS but affirma was negative Laboratory Tests 10/21/18 11/23/20 11:35 15:18 TSH 4.62 H Free T4 0.83 TSH 3rd Generation 2.57 Laboratory Tests 05/29/18 10/21/18 11:15 11:35 25-OH Vitamin D To linda 19.8 Free T4 0.99 0.92 TSH 3rd Generation 4.21 H 2.57 PFSH Medical History Anxiety BMI 60.0-69.9, adult Depression History of abnormal cervical Pap smear Hypothyroidism Localized swelling, mass and lump, left lower limb Morbid obesity Non-toxic multinodular goiter Surgical History History of lumpectomy of right breast (11/26/22) Family History Father Stroke Depression Diabetes mellitus Mental health disorder Mother Mental health disorder Maternal Grandmother Unknown family medical history Maternal Grandfather No problems noted. Paternal Grandmother Unknown family medical history Paternal Grandfather Unknown family medical history Brother Mental health disorder Sister No problems noted. Sister No problems noted. Sister No problems noted. Social History Household Members Other:: sister Housing: House Are you a primary care administrative tech to a significant other at home: No Do you presently have visiting nurse or other home services: No Alcohol intake: never Patient Tobacco Use Status: Never used Tobacco e-Cigarette/Vaping Use: Never Used Second Hand Smoke Exposure: No service: No Current occupational status: disabled Current occupational exposures/hazards: No Sexual orientation: Straight/Heterosexual Gender identity: Female Female Reproductive History Menstrual Age of Menarche: 10 Physical Exam Vital Signs: Last Vital Signs Pulse 75 05/28/23 09:32 BP 132/84 05/28/23 09:32 BMI result Body Mass Index 58.5 Const Other: Thyroid gland is of normal size weighs about 15 g. There are no thyroid nodules palpated. 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 She appears to be clinically and biochemically euthyroid. At this point, patient returned to the care of her primary care provider and return back to endocrinology as needed (2) Non-toxic multinodular goiter: Code(s): E04.2 - Nontoxic multinodular goiter Plan: Status post FNA of left lower pole nodule with benign cytology a left upper pole nodule with FL US and benign Afirma Plan is to follow with serial thyroid ultrasound. Patient returned to the care of her primary care provider who could order ultrasound about 2 years time. 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
[2023-05-28 09:32] VITALS: BP 132/84; PULSE 75; BMI 58.5
== END 2023-05-28 09:52 | disposition home or self-care (01) ==
PROVIDERS: PCP Internal Medicine; Visit Provider Internal Medicine Endocrinology, Diabetes & Metabolism
DX: E03.8 Other specified hypothyroidism (principal); E06.3 Autoimmune thyroiditis; E04.2 Nontoxic multinodular goiter
CPT/HCPCS: 99213

== ENCOUNTER → 2023-05-28 09:28 | Outpatient (BNVA) | payer OTHER, SELFPAY | PROVIDERS: Visit Provider Internal Medicine Endocrinology, Diabetes & Metabolism | DX: N63.41 Unspecified lump in right breast, subareolar (principal); E03.8 Other specified hypothyroidism; E06.3 Autoimmune thyroiditis; E04.2 Nontoxic multinodular goiter | CPT/HCPCS: 99212 ==

== ENCOUNTER 2023-05-28 09:56 | Outpatient (AMB) | payer OTHER, SELFPAY ==
--- NOTE | 2023-05-28 10:04 | MHC.OFFVIS ---
Intake Vital Signs 05/28/23 10:19 Height 5 ft 2 in Weight 317 lb 7.45 oz BMI 58.1 BP 130/78 Blood Pressure Location Lt brachial Position Sitting Intake Visit Reasons: Rt breast mass, 3 month follow up Intake Note: Patient is seen in office for 3 month follow up visit, breast exam. Patient c/o: admits to burning pain in the right breast on and off, had felt a lump on the right breast but it then disappeared mm:10/22/22 Brand Advocate Required: No Ip/Mosaic Technician: Ip/Mosaic Technician Present Accompanied by: Self / Same As Patient Allergies pollen extracts Allergy (Verified 05/28/23 10:19) Itching Seasonal Allergies Allergy (Verified 05/28/23 10:19) Itching Medication List - Last Reconciled 05/28/23 by Dwayne Grant MD diclofenac sodium 1% 4 grams topical QID PRN fluoxetine 20 mg PO DAILY fluticasone propionate 50 mcg/actuation (Allergy Relief (fluticasone)) 1 spray intranasal DAILY hydroxyzine pamoate 25 mg PO TID PRN levothyroxine 137 mcg PO DAILY HPI HPI Comments History of Present Illness Details 38-year-old female patient presenting for evaluation of a palpable breast mass located in the nipple-areolar complex noted on self examination. She previously underwent a right breast lumpectomy on 11/26/2022 with an incision located in the periareolar location from 8-9 o'clock position. This revealed a mammary hematoma and small intraductal papilloma, completely excised. She was concerned that a new palpable lump as developed. She was examined approximately 3 months ago and a small lump noted in the right nipple region scar tissue from the previous surgery. Observation was recommended and she returns today for follow-up examination. Since her last visit she reports some burning near the incision and around the nipple but feels the lump has gone away. She denies any new breast symptoms. [facility] Medical History Anxiety BMI 60.0-69.9, adult Morbid obesity History of abnormal cervical Pap smear Depression Localized swelling, mass and lump, left lower limb Non-toxic multinodular goiter Hypothyroidism Surgical History History of lumpectomy of right breast (11/26/22) Family History Father Stroke Depression Diabetes mellitus Mental health disorder Mother Mental health disorder Maternal Grandmother Unknown family medical history Maternal Grandfather No problems noted. Paternal Grandmother Unknown family medical history Paternal Grandfather Unknown family medical history Brother Mental health disorder Sister No problems noted. Sister No problems noted. Sister No problems noted. Social History Household Members Other:: sister Housing: House Are you a primary career technical counselor to a significant other at home: No Do you presently have visiting nurse or other home services: No Alcohol intake: never Patient Tobacco Use Status: Never used Tobacco e-Cigarette/Vaping Use: Never Used Second Hand Smoke Exposure: No service: No Current occupational status: disabled Current occupational exposures/hazards: No Sexual orientation: Straight/Heterosexual Gender identity: Female Female Reproductive History Menstrual Age of Menarche: 10 Date of Mammogram: 10/22/22 Review of Systems Const All systems reviewed & are unremarkable except as noted in HPI and below Denies chills, Denies fever(s), Denies headache(s), Denies poor appetite and Denies weakness ENT Denies headache(s) Card Denies chest pain, Denies irregular heart rhythm, Denies palpitations and Denies dyspnea Resp Denies cough, Denies excessive phlegm production and Denies dyspnea GI Denies abdominal pain, Denies bloating, Denies change in bowel habits, Denies constipation, Denies heartburn, Denies diarrhea, Denies nausea and Denies vomiting Denies urinary frequency and Denies nipple discharge Musc Denies back pain, Denies muscle weakness and Denies numbness Skin/Breast Denies breast swelling, Denies breast skin changes, Reports breast pain, Reports breast mass, Denies changing lesions, Denies nipple discharge and Denies unusual bruising Neuro Denies headache(s), Denies numbness, Denies paresthesias and Denies weakness Psych Denies anxiety and Denies depression Endo Denies palpitations Asaf/Lymph Denies lymphadenopathy Physical Exam Vital Signs: Last Vital Signs BP 130/78 05/28/23 10:19 BMI result Body Mass Index 58.1 Const General: no acute distress and well developed Nutritional Appearance: well nourished Orientation/consciousness: patient oriented x3 Limitations: no limitations Chest Other: Circumareolar incision in the lower outer quadrant of the right breast is clean, dry, and intact without redness or discharge. Examination of the nipple-areolar complex reveals no further palpable mass and no other new skin changes or palpable mass. The remaining breast exam is normal. Resp Effort & Inspection: normal respiratory effort, no audible wheezes, no cough and no respiratory distress GI Inspection: Yes normal to inspection Skin Other: Warm, dry, no rash Neuro General: patient oriented x3 Extrem Other: No edema Assessment & Plan Assessment & Plan (1) Mass of right breast: Code(s): N63.10 - Unspecified lump in the right breast, unspecified quadrant Qualifiers: Breast mass location: subareolar Qualified Code(s): N63.41 - Unspecified lump in right breast, subareolar Plan 38-year-old female patient status post lumpectomy for a intraductal papilloma on 11/26/2022 returning today for follow-up examination. Examination today reveals no new palpable mass. The previously palpable scar tissue below the nipple-areolar complex has resolved. Routine follow-up is recommended. She should follow up as needed. Coding Level of Care Code Est Pt Level 3 (62748) Diagnoses Subareolar mass of right breast N63.41 Breast mass location: subareolar
[2023-05-28 10:19] VITALS: BP 130/78; BMI 58.1
== END 2023-05-28 10:22 | disposition home or self-care (01) ==
PROVIDERS: PCP Internal Medicine; Visit Provider Surgery
DX: N63.41 Unspecified lump in right breast, subareolar (principal)
CPT/HCPCS: 99213

== ENCOUNTER 2024-04-10 10:44 | Outpatient (AMB) | payer OTHER, SELFPAY ==
[2024-04-10 10:51] VITALS: BP 136/90; PULSE 72; BMI 55.0
--- NOTE | 2024-04-10 10:51 | MHC.OFFVIS ---
Vital Signs 04/10/24 10:51 Height 5 ft 2 in Weight 300 lb 14.896 oz BMI 55.0 BP 136/90 H Blood Pressure Location Lt brachial Position Sitting Pulse 72 Pulse Source Pulse Oximeter Intake Visit Reasons: hypothyroidism,MNG Intake Note: Patient present today for hypothyroidism and MNG office visit. 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 Also seen today for obesity. Was previously seeing Dr. Torres last visit May 2023 She has depression, morbid obesity. Hypothyroidism Nontoxic multinodular goiter for hypothyroidism , She is currently on levothyroxine 137 mcg daily. Taking it appropriately, adherent. She does take it with her anti depressants. Lost 15 lbs over the past year. With lifestyle modification. Denies cold or heat intolerance, regular periods, denies diarrhea, constipation, insomnia, fatigue, dry skin, dysphagia, dyspnea, dysphonia, palpitations, irritability, anxiety. Sometimes like once in a few months will have intermittent tremors. Not on biotin. No family history of thyroid disease or thyroid cancer. Has diagnosis of nontoxic multinodular goiter since at least 2015. Left lower pole FNA 12/03 was benign and left upper pole showed FLUS but affirma was negative No compressive symptoms. Obesity BMI 55.0 kg/m2 Not interested in bariatric surgery No DM and HTN Highest weight 336 lbs Currently 321 lbs Lost 15 lbs over the past year. With lifestyle modification. Exercise: walking twice a week , 20 mins Diet : 2 meals a day Breakfast protein , carb Dinner protein plus carb Snacks on yogurt , bananas Also does have chips and cookies sometimes but not often No soda Does have juice sometimes Interested in seeing a radiologist chief of breast imaging No history of pancreatitis No history of gall stones No alcohol use Never smoker No drug use Denies easy bruising, proximal muscle weakness. Family history of DM in father and paternal aunt Father : Stroke and CAD Denies any family history of thyroid cancer. . Review of systems Constitutional: no fevers, chills or weight loss HEENT: no changes in vision Cardiac: No chest pain, discomfort or palpitations. Pulmonary: No SOB GI:No abdominal pain, no nausea or vomiting, no anorexia, no blood in stool : no burning micturition, dysuria or increase in urinary frequency Physical exam General: sitting comfortably in no acute distress HEENT: normocephalic/atraumatic, hair on chin noted Neck: supple, symmetrical, no thyromegaly , does have dorsocervical and supraclavicular fat pads Cardiac: normal heart sounds Pulm: normal breath sounds B/L, no added breath sounds Abd: not distended, no tenderness, no cushingoid striae Extremities: no edema, no signs of myxedema Neuro: AAO x3, Speech: normal, no facial droop, moving all 4 extremities [facility] Medical History Anxiety BMI 60.0-69.9, adult Morbid obesity History of abnormal cervical Pap smear Depression Localized swelling, mass and lump, left lower limb Non-toxic multinodular goiter Hypothyroidism Surgical History History of lumpectomy of right breast (11/26/22) Family History Father Stroke Depression Diabetes mellitus Mental health disorder Mother Mental health disorder Maternal Grandmother Unknown family medical history Maternal Grandfather No problems noted. Paternal Grandmother Unknown family medical history Paternal Grandfather Unknown family medical history Brother Mental health disorder Sister No problems noted. Sister No problems noted. Sister No problems noted. Social History Household Members Other:: sister Housing: House Are you a primary career technical supervisor to a significant other at home: No Do you presently have visiting nurse or other home services: No Alcohol intake: never Patient Tobacco Use Status: Never used Tobacco e-Cigarette/Vaping Use: Never Used Second Hand Smoke Exposure: No service: No Current occupational status: disabled Current occupational exposures/hazards: No Sexual orientation: Straight/Heterosexual Gender identity: Female Female Reproductive History Menstrual Age of Menarche: 10 Physical Exam Vital Signs: Last Vital Signs Pulse 72 04/10/24 10:51 BP 136/90 H 04/10/24 10:51 BMI result Body Mass Index 55.0 Results Reviewed Results Reviewed: Laboratory Tests 05/22/23 09:44 TSH 3.97 Free T4 0.87 US THYROID 01/04 I reviewed the images myself which showed the left-sided nodules with the largest left dominant inferior 2 cm nodule. All nodules remain stable in size/have slightly decreased. CLINICAL INFORMATION: Hypothyroidism, unspecified. COMPARISON: Ultrasound thyroid 11/13/2021 and 11/06/2017. US-guided thyroid biopsy 11/29/2021. TECHNIQUE: Linear transducer grayscale and color Doppler examination with attention to the region of the thyroid. Technically limited study secondary to body habitus. FINDINGS: SIZE: Measurements of the thyroid lobes and nodules are given in sagittal, anteroposterior and transverse dimensions respectively. Right Thyroid Lobe: 5.4 x 2.2 x 2.4 cm, volume 14.6 mL. Previously 5.7 x 2.0 x 2.3 cm, volume 13.7 mL. Parenchyma: The gland echotexture is heterogeneous. Thyroid vascularity is normal. Left Thyroid Lobe: 5.3 x 2.4 x 2.0 cm, volume 13.2 mL. Previously 5.7 x 2.4 x 2.4 cm, volume 17.2 mL. Parenchyma: The gland echotexture is heterogeneous. Thyroid vascularity is normal. Isthmus: 0.5 cm in maximum AP dimension. Previously 0.6 cm. Estimated total number of nodules greater than or equal to 1 cm: 3. Chemical Sales Representative nodules are described as follows: 1. Location: Left superior. Size: 0.9 x 0.9 x 0.9 cm, volume 0.4 mL. Previously: 1.2 x 1.0 x 1.1 cm, volume 0.69 mL. Nodule characteristics: Composition: Solid (2). Echogenicity: Hyperechoic (1). Shape: Not taller than wide (0). Margins: Smooth (0). Echogenic Foci: None (0). ACR TI-RADS total points: 3 Previous: 5 ACR TI-RADS category: 3 Previous: 4 Significant change in size (>/= 20% in 2 dimensions and minimal increase of 2 mm or 50% or greater increase in volume): No Change in features: No Change in ACR TI-RADS risk category: No 2. Location: Left mid. Size: 1.5 x 0.8 x 1.1 cm, volume 0.7 mL. Previously: 1.5 x 1.0 x 1.4 cm, volume 1.0 mL. Nodule characteristics: Composition: Mixed cystic and solid (1). Echogenicity: Cannot be determined (1). Shape: Not taller than wide (0). Margins: Smooth (0). Echogenic Foci: None (0). ACR TI-RADS total points: 2 Previous: 2 ACR TI-RADS category: 2 Previous: 2 Significant change in size (>/= 20% in 2 dimensions and minimal increase of 2 mm or 50% or greater increase in volume): No Change in features: No Change in ACR TI-RADS risk category: No 3. Location: Left inferior. Size: 1.9 x 1.6 x 2.0 cm, volume 3.1 mL. Previously: 2.9 x 1.8 x 2.4 cm, volume 6.3 mL. Nodule characteristics: Composition: Solid/almost completely solid (2). Echogenicity: Isoechoic (1). Shape: Not taller than wide (0). Margins: Ill-defined (0). Echogenic Foci: None (0). ACR TI-RADS total points: 3 Previous: 7 ACR TI-RADS category: 3 Previous: 5 Significant change in size (>/= 20% in 2 dimensions and minimal increase of 2 mm or 50% or greater increase in volume): No Change in features: Yes, improved Change in ACR TI-RADS risk category: Yes, improved NODES: No lymphadenopathy is seen in the tissue surrounding the thyroid gland. US/US thyroid IMPRESSION: Multinodular goiter. 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 Last set labs was show 2022, she does not have any symptoms of hypo or hyperthyroidism. Plan: -ordered TSH, free T4 -continue levothyroxine 137 mcg daily (2) Non-toxic multinodular goiter: Code(s): E04.2 - Nontoxic multinodular goiter Category: Medical Plan: Patient with no family history of thyroid cancer, with no personal history of head or neck radiation, has history of nontoxic multinodular goiter at least since 2016. FNA in November 2021 of the left lower pole FNA 12/03 was benign and left upper pole showed FLUS but affirma was negative No compressive symptoms. Most recent thyroid ultrasound December 2022 showed 3 nodules in the left lobe, superior subcentimeter nodule, a mid 1.5 cm cystic nodule and a left lower dominant 2 cm nodule. All of these nodules have actually decreased in size. The left lower lobe nodule which was previously a high suspicion nodule, now shows no calcifications, is well-defined and is actually a low suspicion nodule with a 5-10% chance of malignancy. This has been biopsied before and was benign. At this time given stability of the nodules, would recommend repeat ultrasound in 2 years from the last 1 which would be in December 2024. Since the left lower dominant nodule was new in appearance on ultrasound in 2021, this needs to be monitored for at least 5 years., Plan: -repeat thyroid ultrasound December 2024 ordered (3) Morbid obesity: Code(s): E66.01 - Morbid (severe) obesity due to excess calories Category: Medical Plan: Patient with morbid obesity BMI of 55.0 kg per m2. She has lost 15 lb in the last year with moderate exercise and decreasing her calories. I reviewed with patient the importance of weight loss as it relates to decreasing the risk of diabetes, cardiovascular disease, obstructive sleep apnea,PCOS, arthritis. We reviewed the importance of decreasing total calorie consumption, minimizing fats and carbohydrates. Discussed 500 calorie daily deficit plan with phone apps We reviewed the plate method. I recommended avoiding eating after 7 PM at night. She was advised to start exercising 30-45 mins a day plus 2 days of strength training. walking at least 10,000 steps a day. She would also be a good candidate for GLP 1 agonist such as we go we are is a bound for weight loss. She does not have any history of pancreatitis, does not use alcohol. No family history of medullary thyroid cancer. I discussed these with her briefly today, and we will have her follow up with me in 3 months after the intensive lifestyle modification plan we discussed to see if we can start her on 1 of those. Would also check A1c. She was referred to radiologist chief of breast imaging. Plan I spent 30 minutes in reviewing the record, seeing the patient and documenting in the medical record. Orders: Orders Hemoglobin A1c Today E03.8 - Other specified hypothyroidism, E04.2 - Nontoxic multinodular goiter, E06.3 - Autoimmune thyroiditis, E66.01 - Morbid (severe) obesity due to excess calories Thyroid Stimulating Hormone Today E03.8 - Other specified hypothyroidism, E04.2 - Nontoxic multinodular goiter, E06.3 - Autoimmune thyroiditis, E66.01 - Morbid (severe) obesity due to excess calories Free T4 (Free Thyroxine) Today E03.8 - Other specified hypothyroidism, E04.2 - Nontoxic multinodular goiter, E06.3 - Autoimmune thyroiditis, E66.01 - Morbid (severe) obesity due to excess calories thyroid 12/21/24 E04.2 - Nontoxic multinodular goiter Referrals [facility] Referral E66.01 - Morbid (severe) obesity due to excess calories Patient Instructions: Do blood work today Next thyroid ultrasound December 2024 See radiologist chief of breast imaging Exercise: 30 mins 5 days of aerobic exercise which is brisk walking, cycling or running/jogging Plus 2 days a week for strenght training / weight lifting When you park, park far away so you always get some steps in Monitor your steps on your phone : at least [phone] to [phone] a day, start small but go big and build up with time Use apps on phone such as Weiju or lose it , these are free and use them to maintain a 500 calorie deficit daily to lose 1 lb per week Weight loss counselling ? Limit added sugars to less than 25 grams daily. There are 4.2 grams of sugar per teaspoon of sugar. A teaspoon of honey has 6 grams of sugar! Bread also can have more sugar than you think-check labels ? No soda or juices. Drink water, unsweetened iced tea or seltzer ? Limit eating out/take out or prepared meals to twice weekly at most ? Avoid red meat, hot dogs, castellano and deli meat. Substitute plant protein for animal protein as much as you can. Beans, nuts, tofu, soy milk ? Limit cheese to 1 ounce a few times weekly ? Eat high fiber foods like beans, apples and green veggies, salsa is a great snack with whole grain cracker like Wasa ? Look for the whole grain stamp when choosing bread etc. Aim for 48 grams of whole grains daily. Whole wheat does not equal whole grains! ? Don't keep tempting treats in the house. Go out once in a while for a treat. ? 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
== END 2024-04-10 11:42 | disposition home or self-care (01) ==
PROVIDERS: PCP Internal Medicine; Visit Provider Student in an Organized Health Care Education/Training Program
DX: E03.8 Other specified hypothyroidism (principal); E06.3 Autoimmune thyroiditis; E04.2 Nontoxic multinodular goiter; E66.01 Morbid (severe) obesity due to excess calories
CPT/HCPCS: 99214

== ENCOUNTER 2024-04-10 10:44 | Outpatient (REF) | payer OTHER, SELFPAY ==
[2024-04-10 12:50] LABS: Estimated Average Glucose 97 mg/dL; Hemoglobin A1C 90.9416 umol/L
[2024-04-10 13:33] LABS: Free T4 (Free Thyroxine) 0.98 ng/dL (0.71-1.85); Thyroid Stimulating Hormone 2.56 uIU/mL (0.32-4.0)
== END 2024-04-10 10:45 | disposition home or self-care (01) ==
LOC: HO.LAB 10:44
PROVIDERS: PCP Internal Medicine; Visit Provider Student in an Organized Health Care Education/Training Program
DX: E03.8 Other specified hypothyroidism (principal); E04.2 Nontoxic multinodular goiter; E06.3 Autoimmune thyroiditis; E66.01 Morbid (severe) obesity due to excess calories
CPT/HCPCS: 36415; 83036; 84439; 84443; 99212

== ENCOUNTER 2025-04-27 08:45 | Emergency (ER) | payer OTHER, SELFPAY ==
[2025-04-27 09:03] VITALS: BP 153/85; PULSE 84; RESP 18; TEMP 36.6; O2SAT 98; BMI 54.9
--- NOTE | 2025-04-27 09:30 | ED_ITS ---
HPI - General Adult General Chief complaint: Dental/Oral Stated complaint: tooth ache Time Seen by Provider: 04/27/25 09:28 Source: patient Mode of arrival: ambulatory Limitations: no limitations History of Present Illness ED Provider: Natalya Burger PA-C HPI narrative: Patient is a 40 year old assigned female at with a history of hypothyroidism and depression presenting to the emergency department today with right sided dental pain and swelling. Patient states that over the last 2 days she has had right sided facial pain and right upper dental pain that is not improving. Patient states that this has happened before and got antibiotics which helped. Patient denies any other complaints at this time. Onset (ago): day(s) (2) Related Data Home Medications ?Medication ?Instructions ?Recorded ?Confirmed hydroxyzine pamoate 25 mg capsule 25 mg PO TID PRN Anx iety 01/25/21 04/10/24 fluoxetine 20 mg capsule 20 mg PO DAILY 05/28/2303/16 Previous Rx's ?Medication ?Instructions ?Recorded fluticasone propionate 50 1 spray intranasal DAILY #16 grams 05/18/21 mcg/actuation nasal spray,suspension (Allergy Relief (fluticasone)) diclofenac sodium 1 % topical gel 4 g topical QID PRN Right knee 04/24/23 pain #100 grams levothyroxine 137 mcg tablet 137 mcg PO DAILY #90 tabs 06/24/24 chlorhexidine gluconate 0.12 % 15 ml buccal BID #118 m L 04/27/25 mouthwash (Peridex) naproxen 500 mg tablet 500 mg PO BID 7 days #14 tab s 04/27/25 penicillin V potassium 500 mg 500 mg PO BID 10 days #2 0 tabs 04/27/25 tablet Allergies Allergy/AdvReac Type Severity Reaction Status Date / Time pollen extracts Allergy Itching Verified 04/27/25 09:05 Seasonal Allergies Allergy Itching Verified 04/27/25 09:05 Review of Systems 2 Constitutional: Constitutional: Reports as per HPI Eyes: Eyes: Reports as per HPI ENT: Reports as per HPI Cardiovascular: Cardiovascular: Reports as per HPI Respiratory: Respiratory: Reports as per HPI Gastrointestinal: Gastrointestinal: Reports as per HPI Genitourinary: Genitourinary: Reports as per HPI Musculoskeletal: Musculoskeletal: Reports as per HPI Integumentary/Breasts: Skin/Breast: Reports as per HPI Neurologic: Reports as per HPI Psychiatric: Psychiatric: Reports as per HPI Endocrine: Endocrine: Reports as per HPI Hematologic/Lymphatic: Hematologic/Lymphatic: Reports as per HPI Allergic/Immunologic: Allergic/Immunologic: Reports as per HPI [facility] Past Medical History Attestation statement: The following information was validated with the patient. Source: old records reviewed and nursing notes reviewed Medical History Anxiety BMI 60.0-69.9, adult Morbid obesity History of abnormal cervical Pap smear Depression Localized swelling, mass and lump, left lower limb Non-toxic multinodular goiter Hypothyroidism Surgical History History of lumpectomy of right breast (11/26/22) Family History Family History Father Stroke Depression Diabetes mellitus Mental health disorder Mother Mental health disorder Maternal Grandmother Unknown family medical history Maternal Grandfather No problems noted. Paternal Grandmother Unknown family medical history Paternal Grandfather Unknown family medical history Brother Mental health disorder Sister No problems noted. Sister No problems noted. Sister No problems noted. Social History Social History Household Members Other:: sister Housing: House Are you a primary child adolescent care to a significant other at home: No Do you presently have visiting nurse or other home services: No Alcohol intake: never Patient Tobacco Use Status: Never used Tobacco e-Cigarette/Vaping Use: Never Used Second Hand Smoke Exposure: No Advance Directives: No Advance Directives Information Provided: Yes Do you have a plan to hurt others: No Plan service: No Current occupational status: disabled Current occupational exposures/hazards: No Sexual orientation: Straight/Heterosexual Gender identity: Female Physical Exam ED Vital Signs: Vital Signs - 24 hr 04/27/25 09:03 04/27/25 10:54 Temperature 98 F 98.3 F Pulse Rate 84 82 Respiratory Rate 18 18 Blood Pressure 153/85 H 148/86 H Pulse Oximetry 98 98 Oxygen Delivery Method Room Air Room Air BMI result Body Mass Index 54.9 Const General: cooperative, no acute distress, alert and awake Nutritional Appearance: well nourished Orientation/consciousness: patient oriented x3 HENMT Head: Yes normal to inspection and Yes atraumatic Ears: hearing grossly normal bilaterally and external ears normal General nose exam: Normal external nose present, no nasal discharge noted and no epistaxis Face and sinus: No abrasion and No laceration Face images: 2 1. Minimal soft tissue swelling present Mouth: Normal oral and palatal mucosa present, no drooling and no muffled voice Teeth and gingiva: caries and poor dentition Eyes General: appearance normal, both eyes and all related structures Periorbital: periorbital findings normal Eyelids: Yes eyelids normal Conjunctivae: conjunctivae normal Pupils: Equal, round and reactive pupils present EOM: EOMs intact bilaterally Neck Neck: Yes normal visual inspection and Yes full ROM Resp Effort & Inspection: normal respiratory effort and able to speak in complete sentences Neuro General: patient oriented x3, moves all extremities and CN's II-XI intact bilaterally Cranial nerves: Yes Equal, round and reactive pupils present Cognition (Neuro): normal cognition Extrem General: Yes normal to inspection, Yes full ROM and Yes capillary refill normal Psych Appearance: grossly normal Mental Status: mental status grossly normal Affect: normal affect Attitude: cooperative Thought process: Normal thought process present Thought content: Normal thought content present Insight: Good insight present (Psych) Medical Decision Making Medical Decision Making MDM Narrative: Patient is a 40 year old assigned female at with a history of hypothyroidism and depression presenting to the emergency department today with right sided dental pain and swelling. Patient's physical exam was as noted in the physical exam portion of this note. Patient's clinical presentation is consistent with a right upper dental infection with right sided facial soft tissue swelling. No evidence of trismus. Tolerating secretions well. I explained my physical exam findings to the patient. I answered all questions asked by the patient. I stressed the importance of the patient taking her medication as directed (either prescribed or as the over the counter packaging recommends). I stressed the importance of the patient following up with her primary care provider and her dentist. I stressed the importance of the patient returning to the emergency department immediately if her symptoms were to worsen or if she were to develop any dizziness, shortness of breath, difficulty breathing, chest pain, blurry vision, loss of vision, nausea, vomiting, abdominal pain, fever, chills, back pain, or any other complaints. Patient verbalized agreement and understanding with this treatment plan and discharge. Differential Diagnosis Differential Diagnoses: The differential diagnosis associated with the presentation includes Right upper dental pain Right upper dental infection Right sided facial swelling Admission/Observation Consideration of admission/observation: Escalation of care including admission/observation considered Patient would have been admitted to the hospital had her clinical presentation warranted hospital admission. Prescription Management I considered prescription management with: Pain Medication (Patient prescribed pain medication for right upper dental pain) and Antibiotic (Patient prescribed an antibiotic for possible dental abscess) Discharge Plan Discharge Clinical Impression: Abscess, dental Patient Disposition: Home, Self-Care Instructions: Dental Abscess (ED) Additional Instructions: Take your medication as prescribed. Follow up with a dentist. IF you are prescribed home medications and/or you are taking over the counter medications at home - it is very important you continue to do so as prescribed / directed unless told otherwise. Follow up with your primary care provider. Return to the emergency department immediately if your symptoms worsen or if you develop any numbness, tingling, dizziness, shortness of breath, difficulty breathing, chest pain, blurry vision, loss of vision, nausea, vomiting, abdominal pain, fever, chills, back pain, or any other complaints. Call or visit any of the clinics below to establish with a dentist: [facility] [address] [place] [address] [address] [place] [address] [address] [facility] [address] [place] [address] [address] [place] [address] [address] [facility] [address] [place] [address] [address] [facility] [address] [place] [address] [address] [facility] [address] [place] [address] [address] [facility] [address] [place] [address] [address] [facility] [address] [place] [address] [address] [place] [address] [address] [place] [address] [address] [facility] [address] [place] [address] [facility] [address] [place] [address] [facility] [address] [facility] [address] [place] [address] [facility] [address] [place] [address] [facility] [address] [place] [address] [facility] [address] [place] [address] [facility] [address] [facility], [address] [facility] [address] [place] [address] [address] [place] [address] [address] [place] [address] (One number for all locations) [facility] [address] [place] [address] [facility] [address] [place] [address] [facility] [address] [place] [address] Please see the information below about our Patient Portal. If you are not yet enrolled in the [facility] Patient Portal, you will receive an enrollment email invitation following your visit to any [facility] setting. You may also self-enroll in the Patient Portal by visiting our website: [email or web address] The following information is required to access the Patient Portal: - Your [facility] Medical Record Number - Your personal home email address (must match what is in your electronic medical record, Registration staff can assist with this) - Name - Date of Capabilities of the Patient Portal: - Message some providers - View upcoming appointments - Access your health summary, medical history, and visit history - View current conditions and allergies - View procedure and lab results - View your medications, including guidelines, side effects, and precautions - Complete pre-appointment questionnaires requested by your provider - Ready summary reports of your office visits and procedures To access the Patient Portal Mobile Mely, follow these directions: - Search [employer] in the Mely Store or [email or web address] Store - Download the Mely - Search for [facility] - Enter your login/password Prescriptions: New penicillin V potassium 500 mg tablet 500 mg PO BID 10 Days Qty: 20 0RF naproxen 500 mg tablet 500 mg PO BID 7 Days Qty: 14 0RF chlorhexidine gluconate [Peridex] 0.12 % mouthwash 15 ml buccal BID Qty: 118 0RF No Action levothyroxine 137 mcg tablet 137 mcg PO DAILY Qty: 90 4RF diclofenac sodium 1 % gel 4 g topical QID PRN (Reason: Right knee pain) Qty: 100 0RF fluticasone propionate [Allergy Relief (fluticasone)] 50 mcg/actuation spray,suspension 1 spray intranasal DAILY Qty: 16 0RF Rx Instructions: administer into each nostril hydroxyzine pamoate 25 mg capsule 25 mg PO TID PRN (Reason: Anxiety) fluoxetine 20 mg capsule 20 mg PO DAILY Referrals: Angella Blackwood MD [Primary Care Provider, Internal Medicine] Interventions: ED Discharge Assessment Last Done: 04/27/25 10:54 Discharge Date/Time: 04/27/25 10:55 Print Language: Croatian
--- OUTSIDE RECORDS SUMMARY | 2025-04-27 10:43 | XMS_ITS | Clinical Summary ---
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 4 Active chlorhexidine (Peridex) 0.12 % solution Swish 15 mL morning and night for 1 minute. Spit, do not swallow. Do not eat or drink for 30 minutes following use. 473 mL 5 Active Active Problems Problem Noted Date Diagnosed Date Periodontal disease 11/20/2024 Localized periodontitis 11/20/2024 Social History Tobacco Use Types Packs/Day Years Used Date Smoking Tobacco: Never Smokeless Tobacco: Never Tobacco Cessation:Counseling Given: Not Answered Comments Unknown Sex and Gender Information Value Date Recorded Sex Assigned at Female 05/14/2022 10:20 AM EDT Legal Sex Female 10:20 AM EDT Gender Identity Choose not to disclose 10:20 AM EDT Sexual Orientation Choose not to disclose 2021 10:20 AM EDT Last Filed Vital Signs Vital Sign Reading Time Taken Comments Blood Pressure 136/74 01/22/2024 1:59 PM EDT Pulse - - Temperature - - Respiratory Rate - - Oxygen Saturation - - Inhaled Oxygen Concentration - - Weight - - Height - - Body Mass Index - - Plan of Treatment Upcoming Encounters Date Type Department Care Team (Late st Contact Info) Description 05/26/2025 10:15 AM EST Office Visit [facility] [address] [place] [address] Aisha Urias Health Maintenance Due Date Last Done Comments Depression Screening 1985 HIV Screening 1985 SDOH Screening 1985 Disability Screening 1985 Alcohol/Substance Use Screening 1997 Family Planning (PISQ) 01/22/2000 HPV Vaccines (1 - 3-dose series) 01/22/2000 Hepatitis C Screening 2003 Pap Smear 2006 Hepatitis B Vaccines (2 of 3 - 19+ 3-dose series) 07/12/2009 06/14/2009 Cervical Cancer Screening 2015 HPV/Cotest 2015 DTaP/Tdap/Td Vaccines (2 - Td or Tdap) 09/20/2020 09/20/2010 Dental Oral Exam 07/09/2024 01/07/2024, , 09/27/2015, Additional history exists Dental Prophylaxis 07/25/2024 01/22/2024, 0 01/03/2018, 04/03/2016, Additional history exists Dental X-Ray: Bitewings 01/07/2025 01/07/20 24, 01/03/2018, 09/27/2015, Additional history exists Mammogram 2025 COVID-19 Vaccine ( - season) 2025 Influenza Vaccine (#1) 2025 , 03/03/2019, 04/08/2018, Additional history exists Tobacco Screening 11/20/2025 11/20/2024 Dental X-Ray: Full Mouth 01/07/2027 024, 01/03/2018, 04/28/2010, Additional history exists Zoster Vaccines (1 of 2) 2035 RSV Patients and Patients Aged 60 years or older (1 - 1-dose 75+ series) 01/22/2060 HIB Vaccines Aged Out No longer eligi ble based on patient's age to complete this topic Hepatitis A Vaccines Aged Out No long er eligible based on patient's age to complete this topic IPV Vaccines Aged Out No longer eligi ble based on patient's age to complete this topic Meningococcal B Vaccine Aged Out No l onger eligible based on patient's age to complete this topic Meningococcal Vaccine Aged Out No rupinder royce eligible based on patient's age to complete this topic Pneumococcal Vaccine: Pediatrics (0 to 5 Years) and At-Risk Patients (6 to 49) Years Aged Out No longer eligible based on patient's age to complete this topic RSV under 20 months Aged Out No longe r eligible based on patient's age to complete this topic Rotavirus Vaccines Aged Out No longer eligible based on patient's age to complete this topic Procedures Procedure Name Priority Date/Time Associated Diagnosis Comments PROPHYLAXIS - ADULT Routine 01/22/2024 2 :00 PM EDT Dental plaque Dental calculus INTRAORAL - COMPLETE SERIES OF RADIOGRAPHIC IMAGES Routine 01/07/2024 1:30 PM EDT Encounter for dental examination Bruxism PERIODIC ORAL EVALUATION - ESTABLISHED PATIENT Routine 01/07/2024 1:30 PM EDT Encounter for dental examination Bruxism from Last 3 Months or Most Recently Relevant to Health Maintenance Insurance [facility] MEDICA[facility] STAND ADULT
[2025-04-27 10:54] VITALS: BP 148/86; PULSE 82; RESP 18; TEMP 36.8; O2SAT 98
== END 2025-04-27 10:55 | disposition home or self-care (01) ==
PROVIDERS: Emergency Provider Emergency Medicine; PCP Internal Medicine
DX: K04.7 Periapical abscess without sinus (principal); K08.89 Other specified disorders of teeth and supporting structures
CPT/HCPCS: 99282; 99283

== ENCOUNTER 2025-06-25 09:46 | Outpatient (REF) | payer OTHER, SELFPAY ==
[2025-06-25 16:28] LABS: Bacterial Vaginosis PCR NEGATIVE (Negative); Candida Group PCR NOT DETECTED (Not Detect); Candida glab krusei PCR NOT DETECTED (Not Detect); Trichomonas vaginalis PCR NOT DETECTED (Not Detect)
[2025-06-25 17:00] LABS: CT PCR NOT DETECTED (Not Detect.); NG PCR NOT DETECTED (Not Detect.)
--- OUTSIDE RECORDS SUMMARY | 2025-06-25 17:26 | XMS_ITS | Clinical Summary ---
Author Organization [employer] Address [address] [facility] [address] [place] [address] Care Team Providers Care Lens Matcher Name Role Phone Unavailable Primary Care Provider [...] minutes following use. 473 mL 5 Active naproxen (Naprosyn) 500 MG tablet 5 Active penicillin v potassium (Veetid) 500 MG tablet 5 Active FLUoxetine (PROzac) 40 MG capsule TAKE 2 CAPSULES BY MOUTH ONCE DAILY EVERY MORNING 5 Active Active Problems Problem Noted Date Diagnosed Date Periodontal disease 11/20/2024 Localized periodontitis 11/20/2024 Encounters Date Type Department Care Team Description 06/04/2025 10:15 AM EST Office Visit [facility] [address] [place] [address] Aisha Urias Localized periodontitis (Primary Dx); Dental calculus 05/20/2025 Telephone [facility] [address] [place] [address] Aisha Urias 04/28/2025 11:00 AM EDT Office Visit [facility] [address] [place] [address] Ruddy Sanon DDS Periodontal disease (Primary Dx); Localized periodontitis from Last 3 Months Social History Tobacco Use Types Packs/Day Years Used Date Smoking Tobacco: Never Smokeless Tobacco: Never Tobacco Cessation:Counseling Given: Not Answered Alcohol Use Standard Drinks/Week Comments Defer 0 (1 standard drink = 0.6 oz pur e alcohol) Alcohol Answer Date Recorded How often do you have a drink containing alcohol ? 0 06/04/2025 Average Number of Drinks Not on file 025 How often do you have six or more drinks on one occasion? 0 06/04/2025 Comments Unknown Sex and Gender Information Value Date Recorded Sex Assigned at Female 05/14/2022 10:20 AM EDT Legal Sex Female 10:20 AM EDT Gender Identity Choose not to disclose 10:20 AM EDT Sexual Orientation Choose not to disclose 2021 10:20 AM EDT Last Filed Vital Signs Vital Sign Reading Time Taken Comments Blood Pressure 116/78 06/04/2025 10:06 AM EST Pulse 84 06/04/2025 10:06 AM EST Temperature - - Respiratory Rate - - Oxygen Saturation - - Inhaled Oxygen Concentration - - Weight - - Height - - Body Mass Index - - Plan of Treatment Upcoming Encounters Date Type Department Care Team (Late st Contact Info) Description 12/09/2025 9:30 AM EDT Office Visit [facility] [address] [place] [address] Aisha Urias Health Maintenance Due Date Last Done Comments Depression Screening 1985 HIV Screening 1985 SDOH Screening 1985 Disability Screening 1985 Family Planning (PISQ) 01/22/2000 HPV Vaccines (1 - 3-dose series) 01/22/2000 Hepatitis C Screening 2003 Pap Smear 2006 Hepatitis B Vaccines (2 of 3 - 19+ 3-dose series) 07/12/2009 06/14/2009 Cervical Cancer Screening 2015 HPV/Cotest 2015 DTaP/Tdap/Td Vaccines (2 - Td or Tdap) 09/20/2020 09/20/2010 Dental X-Ray: Bitewings 01/07/2025 01/07/20 24, 01/03/2018, 09/27/2015, Additional history exists Mammogram 2025 COVID-19 Vaccine ( season) 2025 Influenza Vaccine (#1) 2025 , 03/03/2019, 04/08/2018, Additional history exists Dental Oral Exam 12/03/2025 06/04/2025, , 01/03/2018, Additional history exists Dental Prophylaxis 12/03/2025 06/04/2025, 0 01/22/2024, 01/03/2018, Additional history exists Alcohol/Substance Use Screening 06/04/2026 06/04/2025 Tobacco Screening 06/04/2026 06/04/2025 Dental X-Ray: Full Mouth 04/29/2028 025, 01/07/2024, 01/03/2018, Additional history exists Zoster Vaccines (1 of [...] Procedure Name Priority Date/Time Associated Diagnosis Comments ORAL HYGIENE INSTRUCTIONS Routine 06/04/2025 10:15 AM EST Dental calculus Full PROPHYLAXIS - ADULT Routine 025 10:15 AM EST Dental calculus CASE PRESENTATION, DETAILED AND EXTENSIVE TREATMENT PLANNING Routine 06/04/2025 10:15 AM EST PERIODIC ORAL EVALUATION - ESTABLISHED PATIENT Routine 06/04/2025 10:15 AM EST CASE PRESENTATION, DETAILED AND EXTENSIVE TREATMENT PLANNING Routine 04/28/2025 11:00 AM EDT PANORAMIC RADIOGRAPHIC IMAGE Routine 04/28/2025 11:00 AM EDT LIMITED ORAL EVALUATION - PROBLEM FOCUSED Routine 04/28/2025 11:00 AM EDT INTRAORAL - COMPLETE SERIES OF RADIOGRAPHIC IMAGES Routine 01/07/2024 1:30 PM EDT Encounter for dental examination Bruxism from Last 3 Months or Most Recently Relevant to Health Maintenance Insurance [facility] MEDICAID STAND ADULT
== END 2025-06-25 09:47 | disposition home or self-care (01) ==
LOC: HO.LNP 09:46
PROVIDERS: PCP Internal Medicine; Visit Provider Advanced Practice Midwife
DX: Z01.419 Encounter for gynecological examination (general) (routine) without abnormal findings (principal); Z20.2 Contact with and (suspected) exposure to infections with a predominantly sexual mode of transmission; F32.9 Major depressive disorder, single episode, unspecified; E66.01 Morbid (severe) obesity due to excess calories; Z68.43 Body mass index [BMI] 50.0-59.9, adult
CPT/HCPCS: 81515; 87491; 87591; 87626; 88175

== ENCOUNTER 2025-06-25 09:46 | Outpatient (AMB) | payer OTHER, SELFPAY ==
--- NOTE | 2025-06-25 09:47 | MHC.OFFVIS ---
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 Present (Monisha) Accompanied by: Self / Same As Patient Allergies pollen extracts Allergy (Verified 06/25/25 10:06) Itching Seasonal Allergies Allergy (Verified 06/25/25 10:06) Itching Medication List - Last Reconciled 06/25/25 by Joselyn Stewart CNM chlorhexidine gluconate 0.12% (Peridex) 15 mL buccal BID diclofenac sodium 1% 4 grams topical QID PRN fluoxetine 20 mg PO DAILY fluticasone propionate 50 mcg/actuation (Allergy Relief (fluticasone)) 1 spray intranasal DAILY hydroxyzine pamoate 25 mg PO TID PRN levothyroxine 137 mcg PO DAILY naproxen 500 mg PO BID 7 days penicillin V potassium 500 mg PO BID 10 days Is last menstrual period known: Yes Last menstrual period: 06/15/25 Post menopausal: No Patient : No HPI HPI 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 She has a history of abnormal Pap smear. Patient responds to most questions with 1 or 2 word answers. On questioning she believes she had her mammogram last year she does not know when she has an appointment with her primary care provider but think she needs to make 1 she does not think she has diabetes. She says she has gained a few lb since she was last here. She does have a history of an abnormal Pap smear the last 1 was negative in 2022. She is not sexually active and has not been for the last couple of years. She says she does have a therapist and a psychiatrist and they both help her and she has a appointments with both coming up. She said she stays overnight to help her father who has had a stroke. He is also a big person. She knows that she needs to lose weight but she is not ready to face it at this point she has never considered bariatric surgery and is afraid of it. On questioning she was on penicillin for tooth infection but isn't on it anymore. [facility] Medical History (Updated 06/25/25 @ 11:10 by Joselyn Stewart CNM) Anxiety BMI 60.0-69.9, adult Morbid obesity History of abnormal cervical Pap smear Depression Localized swelling, mass and lump, left lower limb Non-toxic multinodular goiter Hypothyroidism Surgical History History of lumpectomy of right breast (11/26/22) Family History Father Stroke Depression Diabetes mellitus Mental health disorder Mother Mental health disorder Maternal Grandmother Unknown family medical history Maternal Grandfather No problems noted. Paternal Grandmother Unknown family medical history Paternal Grandfather Unknown family medical history Brother Mental health disorder Sister No problems noted. Sister No problems noted. Sister No problems noted. Social History Household Members Other:: sister Housing: House Are you a primary customer care associate to a significant other at home: No Do you presently have visiting nurse or other home services: No Alcohol intake: never Patient Tobacco Use Status: Never used Tobacco e-Cigarette/Vaping Use: Never Used Second Hand Smoke Exposure: No service: No Current occupational status: disabled Current occupational exposures/hazards: No Sexual orientation: Straight/Heterosexual Gender identity: Female Female Reproductive History Menstrual Age of Menarche: 10 Duration of menses: 3-5 days Date of last menstrual period: 06/15/25 control method: none Date of last pap smear: 11/28/21 (negative pap smear, negative hpv ) History of abnormal pap smear: Yes (10/31 lgsil +hpv 08/03 colpo francis 1 09/04 neg pap and hpv)) Date of Mammogram: 10/22/22 (bi rad 4) Physical Exam Vital Signs: BMI result Body Mass Index 55.6 Const General: cooperative Nutritional Appearance: obese HEENT Other: Her eyes do bulge slightly. Neck Other: Excess adipose Chest Other: Darkening of skin underneath breasts. Chest palpation & inspection: normal inspection of the chest and normal palpation of entire chest wall Breast/axilla inspection: normal inspection of the breasts and normal inspection of the axillae Breast/axilla palpation: normal palpation of the breasts and normal palpation of the axillae Other: Exam was very much limited by patient's adipose. There was an odor of ammonia. Large Graves speculum was used vagina pink and moist with some pink tinge of discharge possibly from end of menses Cervix glimpsed briefly but re-treated from field of view during the exam for the Pap smear with Cytobrush and spatula testing for gonorrhea chlamydia trichomoniasis bacterial vaginosis and yeast also submitted. If Pap smear is inadequate patient will need to see a different provider for next attempt at Pap smear. Speculum Exam - Vagina: normal appearance of the vagina and other Speculum Exam - Cervix: normal appearance of the cervix and Other cervical findings present (limited views) Bimanual exam- vagina & uterus: other (uterus difficult to assess 2' habitus) Bimanual Exam- Adnexa, other: Other (palpation of adnexae limited 2' habitus) Assessment & Plan Assessment & Plan (1) Encounter for annual routine gynecological examination: Code(s): Z01.419 - Encounter for gynecological examination (general) (routine) without abnormal findings Category: Medical (2) Depression: Comment: Sees therapist and psychiatrist Code(s): F32.9 - Major depressive disorder, single episode, unspecified Category: Medical (3) Morbid obesity: Code(s): E66.01 - Morbid (severe) obesity due to excess calories Category: Medical Plan -----Discussed in this visit the following: healthy balanced diet, regular and consistent exercise, getting recommended health screens, doing the best she can for her particular health concerns, kegel exercises, pap smear screening and followup recommendations, mammography screening and SBE, normal changes in cycles in her life stage--- Exam was very much limited by patient's adipose. There was an odor of ammonia. Large Graves speculum was used vagina pink and moist with some pink tinge of discharge possibly from end of menses Cervix glimpsed briefly but re-treated from field of view during the exam for the Pap smear with Cytobrush and spatula testing for gonorrhea chlamydia trichomoniasis bacterial vaginosis and yeast also submitted. If Pap smear is inadequate patient will need to see a different provider for next attempt at Pap smear. . Patient said she did not know when her next mammogram appointment was but she had 1 last year reviewed that now that she is 40 she needs to get 1 every year so when her appointment time comes up to keep it. Urged her to make sure she sees her primary care provider timely basis patient believes she was last screened for diabetes a couple of years ago reviewed that this is important for her health. I urged her to think about approaching her weight issue and acknowledged that it is a very very difficult thing. Walking is her exercise She likes to read and watch movies for relaxation. Orders: Orders MM tomosynthesis screening BI Today Z12.31 - Encounter for screening mammogram for malignant neoplasm of breast Coding Level of Care Code Est Pt Prev Care 40-64y([id number]) Diagnoses Encounter for annual routine gynecological examination Z01.419 Depression F32.9 Morbid obesity E66.01
[2025-06-25 10:07] VITALS: BMI 55.6
== END 2025-06-25 11:05 | disposition home or self-care (01) ==
LOC: HO.HWS 09:46
PROVIDERS: PCP Internal Medicine; Visit Provider Advanced Practice Midwife
DX: Z01.419 Encounter for gynecological examination (general) (routine) without abnormal findings (principal); F32.9 Major depressive disorder, single episode, unspecified; E66.01 Morbid (severe) obesity due to excess calories; Z68.43 Body mass index [BMI] 50.0-59.9, adult
CPT/HCPCS: 99396; 99459

== ENCOUNTER 2025-07-14 10:43 | Outpatient (AMB) | payer OTHER, SELFPAY ==
--- NOTE | 2025-07-14 10:49 | MHC.OFFVIS ---
Vital Signs 07/14/25 10:52 Height 5 ft 2 in Weight 313 lb 0.902 oz BMI 57.3 BP 128/86 Blood Pressure Location Lt brachial Position Sitting Pulse 88 Pulse Source Pulse Oximeter Pulse Oximetry (%) 98 Oxygen Delivery Method Room Air Intake Visit Reasons: F/U Hypothyroidism Intake Note: Patient present today for hypothyroidism and MNG office visit. Export Agent Required: No Accompanied by: Self / Same As Patient Allergies pollen extracts Allergy (Verified 07/14/25 10:53) Itching Seasonal Allergies Allergy (Verified 07/14/25 10:53) Itching Medication List - Last Reconciled 07/14/25 by Renny Torres MD chlorhexidine gluconate 0.12% (Peridex) 15 mL buccal BID diclofenac sodium 1% 4 grams topical QID PRN fluoxetine 20 mg PO DAILY fluticasone propionate 50 mcg/actuation (Allergy Relief (fluticasone)) 1 spray intranasal DAILY hydroxyzine pamoate 25 mg PO TID PRN levothyroxine 137 mcg PO DAILY naproxen 500 mg PO BID 7 days penicillin V potassium 500 mg PO BID 10 days HPI Comments Details: 40 yo female today for fup visit, for hypothyroidism and NTMNG. Also seen today for obesity. She last saw Dr. Ramsey on 04/10/2024 Was previously seeing myself last visit May 2023 She has depression, morbid obesity. Hypothyroidism Nontoxic multinodular goiter for hypothyroidism , She is currently on levothyroxine 137 mcg daily. Taking it appropriately, adherent. She does take it with her anti depressants. Lost 15 lbs over the past year. With lifestyle modification. Denies cold or heat intolerance, regular periods, denies diarrhea, constipation, insomnia, fatigue, dry skin, dysphagia, dyspnea, dysphonia, palpitations, irritability, anxiety. Sometimes like once in a few months will have intermittent tremors. Not on biotin. No family history of thyroid disease or thyroid cancer. Has diagnosis of nontoxic multinodular goiter since at least 2015. Left lower pole FNA 12/03 was benign and left upper pole showed FLUS but affirma was negative No compressive symptoms. Obesity BMI 55.0 kg/m2 Not interested in bariatric surgery No DM and HTN Highest weight 336 lbs Currently 321 lbs Lost 15 lbs over the past year. With lifestyle modification. Exercise: walking twice a week , 20 mins Diet : 2 meals a day Breakfast protein , carb Dinner protein plus carb Snacks on yogurt , bananas Also does have chips and cookies sometimes but not often No soda Does have juice sometimes Interested in seeing a business transformation analyst No history of pancreatitis No history of gall stones No alcohol use Never smoker No drug use Denies easy bruising, proximal muscle weakness. Family history of DM in father and paternal aunt Father : Stroke and CAD Denies any family history of thyroid cancer. . Saw Dr. Ramsey for multinodular goiter decided to have follow up ultrasound in 12/2025. Also discuss the possible use of G LP 1 agonist for weight loss I last [facility] Medical History (Updated 07/01/25 @ 13:53 by Joselyn Stewart CNM) Anxiety BMI 60.0-69.9, adult Morbid obesity History of abnormal cervical Pap smear Depression Localized swelling, mass and lump, left lower limb Non-toxic multinodular goiter Hypothyroidism Surgical History History of lumpectomy of right breast (11/26/22) Family History Father Stroke Depression Diabetes mellitus Mental health disorder Mother Mental health disorder Maternal Grandmother Unknown family medical history Maternal Grandfather No problems noted. Paternal Grandmother Unknown family medical history Paternal Grandfather Unknown family medical history Brother Mental health disorder Sister No problems noted. Sister No problems noted. Sister No problems noted. Social History Household Members Other:: sister Housing: House Are you a primary animal care attendant to a significant other at home: No Do you presently have visiting nurse or other home services: No Alcohol intake: never Patient Tobacco Use Status: Never used Tobacco e-Cigarette/Vaping Use: Never Used Second Hand Smoke Exposure: No service: No Current occupational status: disabled Current occupational exposures/hazards: No Sexual orientation: Straight/Heterosexual Gender identity: Female Female Reproductive History Menstrual Age of Menarche: 10 Physical Exam Vital Signs: Last Vital Signs Pulse 88 07/14/25 10:52 BP 128/86 07/14/25 10:52 Pulse Ox 98 07/14/25 10:52 Oxygen Delivery Method Room Air 07/14/25 10:52 BMI result Body Mass Index 57.3 Const Other: Thyroid gland is of normal size weighs about 15 g. There are no thyroid nodules palpated. 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 Last set labs was show 2022, she does not have any symptoms of hypo or hyperthyroidism. Plan: -ordered TSH, free T4 and will adjust levothyroxine accordingly -continue levothyroxine 137 mcg daily (2) Non-toxic multinodular goiter: Code(s): E04.2 - Nontoxic multinodular goiter Category: Medical Plan: Patient with no family history of thyroid cancer, with no personal history of head or neck radiation, has history of nontoxic multinodular goiter at least since 2015. FNA in November 2021 of the left lower pole FNA 12/03 was benign and left upper pole showed FLUS but affirma was negative No compressive symptoms. Most recent thyroid ultrasound December 2022 showed 3 nodules in the left lobe, superior subcentimeter nodule, a mid 1.5 cm cystic nodule and a left lower dominant 2 cm nodule. All of these nodules have actually decreased in size. The left lower lobe nodule which was previously a high suspicion nodule, now shows no calcifications, is well-defined and is actually a low suspicion nodule with a 5-10% chance of malignancy. This has been biopsied before and was benign. At this time given stability of the nodules, would recommend repeat ultrasound in 2 years from the last 1 which would be in December 2024. Since the left lower dominant nodule was new in appearance on ultrasound in 2021, this needs to be monitored for at least 5 years., Plan: -repeat thyroid ultrasound reordered. She should follow up with Dr. Ramsey subsequent to this to review the ultrasound in about 2-3 months (3) Morbid obesity: Code(s): E66.01 - Morbid (severe) obesity due to excess calories Category: Medical Plan: Patient with morbid obesity BMI of 55.0 kg per m2. She has lost 15 lb in the last year with moderate exercise and decreasing her calories. I reviewed with patient the importance of weight loss as it relates to decreasing the risk of diabetes, cardiovascular disease, obstructive sleep apnea,PCOS, arthritis. We reviewed the importance of decreasing total calorie consumption, minimizing fats and carbohydrates. Discussed 500 calorie daily deficit plan with phone apps We reviewed the plate method. I recommended avoiding eating after 7 PM at night. She was advised to start exercising 30-45 mins a day plus 2 days of strength training. walking at least 10,000 steps a day. She would also be a good candidate for GLP 1 agonist such as we go we are is a bound for weight loss. She does not have any history of pancreatitis, does not use alcohol. No family history of medullary thyroid cancer. I discussed these with her briefly today, and we will have her follow up with Dr. Ramsey in 3 months after the intensive lifestyle modification plan we discussed to see if we can start her on 1 of those. 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
[2025-07-14 10:52] VITALS: BP 128/86; PULSE 88; O2SAT 98; BMI 57.3
--- OUTSIDE RECORDS SUMMARY | 2025-07-14 12:04 | XMS_ITS | Clinical Summary ---
Author Organization [employer] Address [address] [facility] [address] [place] [address] Care Team Providers Care Salt Grinder Name Role Phone Unavailable Primary Care Provider [...] Description 06/04/2025 10:15 AM EST Office Visit [facility] [address] [place] [address] Aisha Urias Localized periodontitis (Primary Dx); Dental calculus 05/20/2025 Telephone [facility] [address] [place] [address] Aisha Urias 04/28/2025 11:00 AM EDT Office Visit [facility] [address] [place] [address] Ruddy Sanon DDS Periodontal disease (Primary Dx); [...] Description 12/09/2025 9:30 AM EDT Office Visit [facility] [address] [place] [address] Aisha Urias Health Maintenance Due Date Last [...] Most Recently Relevant to Health Maintenance Insurance [facility] MEDICAID STAND ADULT
== END 2025-07-14 11:11 | disposition home or self-care (01) ==
LOC: HO.ENCR 10:44
PROVIDERS: PCP Internal Medicine; Visit Provider Internal Medicine Endocrinology, Diabetes & Metabolism
DX: E03.8 Other specified hypothyroidism (principal); E06.3 Autoimmune thyroiditis; E04.2 Nontoxic multinodular goiter; E66.01 Morbid (severe) obesity due to excess calories
CPT/HCPCS: 99213

== ENCOUNTER 2025-07-14 10:43 | Outpatient (REF) | payer OTHER, SELFPAY ==
[2025-07-14 13:05] LABS: Free T4 (Free Thyroxine) 1.10 ng/dL (0.71-1.85); Thyroid Stimulating Hormone 3.26 uIU/mL (0.32-4.0)
== END 2025-07-14 10:44 | disposition home or self-care (01) ==
LOC: HO.LAB 10:43
PROVIDERS: PCP Internal Medicine; Visit Provider Internal Medicine Endocrinology, Diabetes & Metabolism
DX: E03.8 Other specified hypothyroidism (principal); E06.3 Autoimmune thyroiditis; E04.2 Nontoxic multinodular goiter; E66.01 Morbid (severe) obesity due to excess calories; Z68.43 Body mass index [BMI] 50.0-59.9, adult
CPT/HCPCS: 36415; 84439; 84443; 99212